=== PATIENT | female | born 1965 | race American Indian/Alaskan Native ===

== ENCOUNTER 2016-02-28 10:27 | Emergency (ER) | payer SELFPAY ==
--- NOTE | 2016-02-28 11:27 | Emergency Department Report ---
Chief Complaint: Abdominal Pain Stated Complaint: ABD PAIN/LOWER BACK PAIN/ Time Seen by Provider: 02/28/16 11:25 - HPI History of Present Illness: Patient here reports that she's having abdominal pain for 3 days. She says she noticed blood in her stool last night after she had a bowel movement and wiped. She says she has a history of hemorrhoid and she had hemorrhoidectomy in the past. She said her abdominal pain is 10 out of 10 located around her periumbilical area. Patient has a history of COPD reports coughing with some shortness of breath. She said the shortness of breath his usual she is on inhalers at home. She has a history of hysterectomy. She has a blood pressure of 198/123 and did not take her medications today. Denies any headache or chest pain. SHe usually takes Norvasc, clonidine, minoxidil and atenolol. She denies any nausea vomiting. She denies any fever or chills. - ROS Review of Systems: All systems are negative unless stated in HPI above. - Exam Vital Signs: Vital Signs 02/28/16 11:02 Temperature 98.1 F Pulse Rate 94 H Respiratory 24 Rate Blood Pressure 198/123 O2 Sat by Pulse 97 Oximetry Physical Exam: General: This is a 50-year-old female well-nourished well-developed nontoxic in appearance. Lungs: Lungs sounds coarse. Mild increased work of breathing. GI: Tender to palpate periumbilical area with positive guarding. No CVA tenderness and normal bowel sounds in all quadrants. MSE screening note: Focused history and physical exam performed. Due to findings the following was ordered:see [facility] ED Medical Decision Making - Medical Decision Making Medical decision making: Patient seen by provider in triage area. Appropriate protocol activated and patient to main ED to be seen by physician. ED Disposition for MSE Condition: Stable Instructions: Abdominal Pain (ED)
[2016-02-28] MEDS ORDERED: DUONEB 0.5 MG-3 MG/3 ML SOLN IH ONE (11:30)
[2016-02-28] MEDS ORDERED: CATAPRES PO ONE (11:33)
[2016-02-28] MEDS ORDERED: CATAPRES ONE (11:34)
[2016-02-28 11:48] LABS: Basophils % (Auto) 0.2 % (0.0-1.8); Eosinophils % (Auto) 1.5 % (0.0-4.3); Hematocrit 41.1 % (30.3-42.9); Hemoglobin 13.1 gm/dl (10.1-14.3); Mean Corpuscular HGB Conc 32 % (30-34); Mean Corpuscular Volume 81 fl (79-97); Platelet Count 177 K/mm3 (140-440); Red Cell Distribution Width 14.6 % (13.2-15.2); White Blood Count 7.8 K/mm3 (4.5-11.0)
[2016-02-28 11:52] LABS: Mean Corpuscular Hemoglobin 26 pg (28-32)
--- NOTE | 2016-02-28 12:00 | XRay Report ---
CHEST 2 VIEWS INDICATION: Cough with COPD. COMPARISON: 09/27/2015 FINDINGS: Frontal and lateral chest radiographs demonstrate stable cardiomediastinal silhouette, mildly elevated right hemidiaphragm and multilevel thoracic spondylosis. Grossly clear lungs without pleural effusions or CHF. CONCLUSION: No acute disease in the chest or significant interval change, as described. Thank you for the opportunity to participate in this patient's care.
[2016-02-28 12:02] LABS: Alanine Aminotransferase 22 units/L (7-56); Albumin 4.3 g/dL (3.9-5); Albumin/Globulin Ratio 1.3 %; Alkaline Phosphatase 79 units/L (35-129); Amylase 91 units/L (27-131); Anion Gap 17 mmol/L; BUN/Creatinine Ratio 28.57; Bilirubin,Total 0.3 mg/dL (0.1-1.2); Blood Urea Nitrogen 20 mg/dL (7-17); Calcium 9.2 mg/dL (8.4-10.2); Carbon Dioxide 28 mmol/L (22-30); Chloride 100.2 mmol/L (98-107); Glucose 132 mg/dL (65-100); Lipase 32 units/L (13-60); Potassium 4.1 mmol/L (3.6-5.0); Sodium 141 mmol/L (137-145); Total Protein 7.7 g/dL (6.3-8.2)
--- NOTE | 2016-02-28 12:52 | Emergency Department Report ---
HPI - General Chief Complaint: Abdominal Pain Time Seen by Provider: 02/28/16 11:25 - HPI HPI: This is a 50-year-old [place] female presents to the emergency department after she was dropped off by her daughter from home with complaint of a three- day history of mid upper abdominal discomfort. She denies any nausea, vomiting , fever, dysuria, constipation or diarrhea. However the patient said she did have one bowel movement yesterday where there was some bright red blood seen on the toilet paper. Patient has a history of internal hemorrhoids in the past. She is not taken anything for symptoms prior to presentation. Pain is currently 6 out of 10 in intensity but reaches a 10 out of 10 at its maximum. No recent travel or sick contacts at home. Her primary care doctor is Dr. Aragno. 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 She has a history of gallstones, HIV, gastric ulcers, COPD on 2 L oxygen, hypertension. ED Past Medical Hx - Past Medical History Hx Hypertension: Yes Hx Congestive Heart Failure: No Hx Diabetes: No Hx GERD: Yes Hx Arthritis: Yes Hx Seizures: No Hx Psychiatric Treatment: Yes (depression/anxiety) Hx Asthma: Yes Hx COPD: Yes Hx HIV: Yes Additional medical history: ulcers, pancreatitis. diverticulitis. ulcers. sleep apnea. glaucoma. fibromyalgia. chronic pain. Patient states her viral load is 0. She denies a history of pulmonary infections of any sort. hiv. depression/anxiety - Surgical History Hx Coronary Stent: No (pt reports she doesn't have any coronary stents.) Additional Surgical History: hysterectomy. tonsillectomy - Social History Smoking Status: Never Smoker Substance Use Type: None - Medications Home Medications: Home Medications Medication Instructions Recorded Confirmed Last Taken Type amLODIPine [Norvasc] 10 mg PO DAILY 12/21/12 10/27/15 09/26/15 09:00 History cloNIDine [Catapres] 0.2 mg PO BID 12/21/12 10/27/15 09/26/15 09:00 History Ondansetron [Zofran ODT TAB] 4 mg PO Q6H PRN #10 tab.rapdis 12/04/13 02/28/15 Rx Minoxidil [Loniten] 10 mg PO BID 10/16/14 10/27/15 09/26/15 09:00 History Albuterol Sulfate [Albuterol 0.63% 0.63 mg IH Q4HR PRN #2 ml 01/07/15 02/28/15 Unknown Rx NEBS] Albuterol Sulfate [Proair 90 mcg IH Q4HR PRN #2 aer.pow.ba 01/07/15 02/28/15 Unknown Rx Respiclick] Azithromycin [Zithromax Z-MELITON] 250 mg PO DAILY #4 tab 01/07/15 02/28/15 Unknown Rx Ondansetron [Zofran Odt] 4 mg PO QID PRN #20 tab.rapdis 01/07/15 02/28/15 Unknown Rx predniSONE [Deltasone] 40 mg PO QDAY #8 tab 01/07/15 02/28/15 Unknown Rx traMADol [Ultram 50 MG tab] 50 - 100 mg PO Q8HR PRN #20 tablet 01/09/15 Unknown Rx Atenolol [Tenormin] 100 mg PO DAILY 04/04/15 10/27/15 09/26/15 09:00 History Xanax TAB 0.5 mg PO BID 04/05/15 10/27/15 09/26/15 09:00 History Benzonatate [Tessalon Perles] 100 mg PO Q8HR #14 capsule 09/27/15 10/27/15 Unknown Rx Efavirenz/Emtricitab/Tenofovir 0 mg PO DAILY 09/27/15 10/27/15 09/26/15 09:00 History [Atripla Tablet] Sulfamethoxazole/Trimethoprim 1 each PO BID #20 tablet 09/27/15 10/27/15 Unknown Rx [Bactrim DS TAB] Zolpidem [Ambien] 5 mg PO QHS PRN 09/27/15 10/27/15 09/26/15 09:00 History Sulfamethoxazole/Trimethoprim 1 each PO BID #20 tablet 10/27/15 Unknown Rx [Bactrim DS TAB] Omeprazole Magnesium [PriLOSEC Otc] 20 mg PO QDAY #15 tablet. 02/28/16 Unknown Rx traMADol [Ultram 50 MG tab] 50 mg PO Q6HR PRN #10 tablet 02/28/16 Unknown Rx ED Review of Systems ROS: Stated complaint: ABD PAIN/LOWER BACK PAIN/ Other details as noted in HPI Comment: All other systems reviewed and negative Constitutional: denies: chills, fever Eyes: denies: eye pain, eye discharge, vision change ENT: denies: ear pain, throat pain Respiratory: denies: cough, shortness of breath, wheezing Cardiovascular: denies: chest pain, palpitations Gastrointestinal: abdominal pain. denies: nausea, vomiting Genitourinary: denies: urgency, dysuria, discharge Musculoskeletal: denies: back pain, joint swelling, arthralgia Skin: denies: rash, lesions Neurological: denies: headache, weakness, paresthesias Physical Exam - Physical Exam Vital Signs: Vital Signs 02/28/16 02/28/16 11:02 11:35 Temperature 98.1 F Pulse Rate 94 H 97 H Respiratory 24 Rate Blood Pressure 198/123 198/123 O2 Sat by Pulse 97 Oximetry Physical Exam: GENERAL: The patient is well-developed well-nourished. Patient does not appear in any acute distress. HEENT: Normocephalic. Atraumatic. Extraocular motions are intact. Patient has moist mucous membranes. Pupils equal reactive to light bilaterally. NECK: Supple. Trachea is midline. CHEST/LUNGS: Clear to auscultation. There is no respiratory distress noted. HEART/CARDIOVASCULAR: Regular. There is no tachycardia. There is no gallop rub or murmur. ABDOMEN: Abdomen is soft. Patient has some reproducible tenderness palpation to the upper quadrants of the abdomen. No guarding rebound tenderness. No peritoneal signs. Orbitally obese habitus. Patient has normal bowel sounds. There is no abdominal distention. SKIN: There is no rash. There is no edema. There is no diaphoresis. NEURO: The patient is awake, alert, and oriented. The patient is cooperative. The patient has no focal neurologic deficits. The patient has normal speech. MUSCULOSKELETAL: There is no tenderness or deformity. There is no limitation range of motion. There is no evidence of acute injury. ED Course Vital Signs 02/28/16 02/28/16 11:02 11:35 Temperature 98.1 F Pulse Rate 94 H 97 H Respiratory 24 Rate Blood Pressure 198/123 198/123 O2 Sat by Pulse 97 Oximetry ED Medical Decision Making - Lab Data Result diagrams: 02/28/16 11:37 02/28/16 11:37 - Radiology Data Radiology results: report reviewed, image reviewed interpreted by me: Chest x-ray did not show any acute process. Heart is normal shape and size. No effusions. No pneumothorax. No signs of pneumonia seen. Abdominal x-ray does not show any acute process. No acute abdominal sonographic abnormality on this technically limited exam with a small gallstone noted. - Medical Decision Making 50-year-old female presents to the emergency department with complaint of a few days of some upper abdominal discomfort. Patient's labs have been mostly unremarkable. There is no leukocytosis. Normal belly labs including LFTs, lipase and bilirubin. Urinalysis does not show any signs of urinary tract infection. Patient had abdominal x-ray that does not show any acute process. Patient had a CT scan of the abdomen and pelvis 3 months ago that showed some gallstones. With normal-appearing labs and a soft, nontoxic or rigid abdomen, I did not feel that a repeat CT scan of the abdomen was necessary at this time. Instead a complete abdominal ultrasound was done that showed a small gallstone but otherwise no acute pathology. Patient was given some pain medication which did help with her discomfort and also help with her hypertension. Patient will be discharged home to follow-up with Dr. Aragon and will return to the ER if any worsening of her symptoms or any acute distress. - Differential Diagnosis biliary colic, pancreatitis, hepatitis, colitis, gastritis Critical Care Time: No Critical care attestation.: If time is entered above; I have spent that time in minutes in the direct care of this critically ill patient, excluding procedure time. ED Disposition Clinical Impression: Abdominal pain Qualifiers: Abdominal location: upper abdomen, unspecified Qualified Code(s): R10.10 - Upper abdominal pain, unspecified Disposition: DISCHARGED TO HOME OR SELFCARE Is pt being admited?: No Does the pt Need Aspirin: No Condition: Stable Instructions: Abdominal Pain (ED) Additional Instructions: Please follow-up with your primary care doctor in the next few days. I given you a referral for a local data software engineer encase she need follow-up regarding the blood in her stool. Return to the emergency department with any worsening of your symptoms or any acute distress. You've been prescribed a medication that is sedating. Therefore this medication cannot be mixed with alcohol, or taken prior to driving, working, or being responsible for children. Try to stay away from foods that are high in salt and caffeinated products to help with your elevated blood pressure. Keep a blood pressure log. Prescriptions: Omeprazole Magnesium [PriLOSEC Otc] 20 mg PO QDAY #15 tablet. traMADol [Ultram 50 MG tab] 50 mg PO Q6HR PRN #10 tablet PRN Reason: Pain Referrals: CARLITO ARAGON DO [Staff Physician] - 3-5 Days IZZY YUN MD [Staff Physician] - 3-5 Days Time of Disposition: 16:35
[2016-02-28 13:04] LABS: Bilirubin,Urine Negative (Negative); Blood,Urine Negative (Negative); Ketones,Urine Negative (Negative); Leukocyte Esterase,Urine Negative (Negative); Mucus,Urine 2+ /HPF; Nitrite,Urine Negative (Negative); WBC,Urine < 1.0 /HPF (0.0-6.0)
--- NOTE | 2016-02-28 13:51 | XRay Report ---
ABDOMEN RADIOGRAPHS INDICATION: Abdominal pain. COMPARISON: 12/30/2013 FINDINGS: Frontal abdominal radiographs again demonstrate nonobstructive bowel gas pattern. Ascending colon stool. Small pelvic phleboliths and couple of surgical clips. No focal suspicious calcifications, pneumatosis or pneumoperitoneum. Right hemidiaphragm again elevated with possible prominent markings at the lung bases. Unremarkable bones. CONCLUSION: No acute abdominal radiographic abnormality, as described. Thank you for the opportunity to participate in this patient's care.
[2016-02-28] MEDS ORDERED: MORPHINE IV ONE (14:00)
--- NOTE | 2016-02-28 15:24 | Ultrasound Report ---
ULTRASOUND ABDOMEN: INDICATION: Abdominal pain. COMPARISON: 01/07/2015 ultrasound and 10/27/2015 CT. FINDINGS: Abdominal sonography limited due to patient's body habitus, though suggests grossly normal hepatic contours with possible mild diffuse echogenic coarsening versus technical with poor penetration. Tiny, 4 mm gallstone may be noted. No pericholecystic fluid or positive sonographic [place]'s sign. Gallbladder wall thickness is 2.4 mm. Common bile duct is 4.4 mm. Homogenous spleen, 9.7 cm in length. No ascites. Visualized pancreas unremarkable, though detail slightly obscured due to bowel gas. Nonaneurysmal abdominal aorta. Unremarkable IVC. Normal kidneys, approximately 11 x 4.6 x 4.9 cm on the right with cortical thickness of 1.3 cm while 10.2 x 4.1 x 5.1 cm on the left with cortical thickness of 1.6 cm. CONCLUSION: No acute abdominal sonographic abnormality on this technically limited exam with a small gallstone noted, as described. Thank you for the opportunity to participate in this patient's care.
[2016-02-28] MEDS ORDERED: DILAUDID IV ONE (15:48)
[2016-02-28 16:19] VITALS: BP 169/85
== END 2016-02-28 16:58 | disposition home or self-care (01) ==
LOC: ED 10:27
DX: R10.10 Upper abdominal pain, unspecified (principal); I10 Essential (primary) hypertension; K21.9 Gastro-esophageal reflux disease without esophagitis; M19.90 Unspecified osteoarthritis, unspecified site; F32.9 Major depressive disorder, single episode, unspecified; F41.9 Anxiety disorder, unspecified; J45.909 Unspecified asthma, uncomplicated; J44.9 Chronic obstructive pulmonary disease, unspecified; G89.29 Other chronic pain
CPT/HCPCS: 36415; 71020; 74020; 76700; 80053; 81001; 82150; 83690; 85025; 96374; 96375; 99285; J1170; J2270

== ENCOUNTER 2016-03-31 15:44 | Emergency (ER) | payer OTHER ==
[2016-03-31 16:38] VITALS: BP 184/90
[2016-03-31] MEDS ORDERED: PROVENTIL IH ONE (17:10)
[2016-03-31 18:56] LABS: Basophils % (Auto) 0.2 % (0.0-1.8); Eosinophils % (Auto) 0.3 % (0.0-4.3); Hematocrit 36.5 % (30.3-42.9); Hemoglobin 11.5 gm/dl (10.1-14.3); Mean Corpuscular HGB Conc 32 % (30-34); Mean Corpuscular Volume 78 fl (79-97); Platelet Count 120 K/mm3 (140-440); Red Blood Count 4.67 M/mm3 (3.65-5.03); Red Cell Distribution Width 15.4 % (13.2-15.2); White Blood Count 3.8 K/mm3 (4.5-11.0)
[2016-03-31 19:13] LABS: Alanine Aminotransferase 19 units/L (7-56); Albumin 3.8 g/dL (3.9-5); Albumin/Globulin Ratio 1.3 %; Alkaline Phosphatase 84 units/L (35-129); Anion Gap 15 mmol/L; BUN/Creatinine Ratio 23.33; Bilirubin,Total 0.3 mg/dL (0.1-1.2); Blood Urea Nitrogen 14 mg/dL (7-17); Calcium 8.3 mg/dL (8.4-10.2); Carbon Dioxide 26 mmol/L (22-30); Chloride 103.3 mmol/L (98-107); Glucose 107 mg/dL (65-100); Lipase 18 units/L (13-60); Potassium 3.4 mmol/L (3.6-5.0); Sodium 141 mmol/L (137-145); Total Protein 6.8 g/dL (6.3-8.2)
[2016-03-31 19:15] LABS: Mean Corpuscular Hemoglobin 25 pg (28-32)
--- NOTE | 2016-04-01 08:16 | XRay Report ---
CHEST TWO VIEWS: 03/31/16 15:44:00 CLINICAL: Shortness of breath. COMPARISON: 02/28/16 FINDINGS: Normal heart and pulmonary vasculature. The lungs are normally expanded and clear. Degenerative change in the spine. IMPRESSION: No acute cardiopulmonary process.
--- NOTE | 2016-04-04 20:26 | ED Elopement Review ---
ED Pt Elopement review - Results review Lab results: Laboratory Tests 03/31/16 03/31/16 18:24 18:24 WBC 3.8 L RBC 4.67 Hgb 11.5 Hct 36.5 MCV 78 L MCH 25 L MCHC 32 RDW 15.4 H Plt Count 120 L Lymph % (Auto) 35.6 H Rawlins % (Auto) 8.1 H Eos % (Auto) 0.3 Baso % (Auto) 0.2 Lymph # 1.3 Rawlins # 0.3 Eos # 0.0 Baso # 0.0 Seg Neutrophils % 55.8 Seg Neutrophils # 2.1 Sodium 141 Potassium 3.4 L Chloride 103.3 Carbon Dioxide 26 Anion Gap 15 BUN 14 Creatinine 0.6 L Estimated GFR > 60 BUN/Creatinine Ratio 23.33 Glucose 107 H Calcium 8.3 L Total Bilirubin 0.3 AST 22 ALT 19 Alkaline Phosphatase 84 Troponin T < 0.010 Total Protein 6.8 Albumin 3.8 L Albumin/Globulin Ratio 1.3 Lipase 18 - Call Back decision Pt Call Back Decision: No action required <EDWIN GONZALEZ - Last Filed: 04/04/16 20:26> - Results review Lab results: Laboratory Tests 03/31/16 03/31/16 18:24 18:24 WBC 3.8 L RBC 4.67 Hgb 11.5 Hct 36.5 MCV 78 L MCH 25 L MCHC 32 RDW 15.4 H Plt Count 120 L Lymph % (Auto) 35.6 H [place] % (Auto) 8.1 H Eos % (Auto) 0.3 Baso % (Auto) 0.2 Lymph # 1.3 [place]ins # 0.3 Eos # 0.0 Baso # 0.0 Seg Neutrophils % 55.8 Seg Neutrophils # 2.1 Sodium 141 Potassium 3.4 L Chloride 103.3 Carbon Dioxide 26 Anion Gap 15 BUN 14 Creatinine 0.6 L Estimated GFR > 60 BUN/Creatinine Ratio 23.33 Glucose 107 H Calcium 8.3 L Total Bilirubin 0.3 AST 22 ALT 19 Alkaline Phosphatase 84 Troponin T < 0.010 Total Protein 6.8 Albumin 3.8 L Albumin/Globulin Ratio 1.3 Lipase 18 - Call Back decision Pt Call Back Decision: Call pt to return to ED HEATHER (tachypnea should be evaluated) <YOBANY LOU - Last Filed: 04/06/16 01:18>
== END 2016-03-31 21:30 | disposition left against medical advice (07) ==
LOC: ED 15:44
DX: R07.9 Chest pain, unspecified (principal); R10.9 Unspecified abdominal pain; Z53.21 Procedure and treatment not carried out due to patient leaving prior to being seen by health care provider
CPT/HCPCS: 36415; 71020; 80053; 83690; 84484; 85025; 93005; 93010

== ENCOUNTER 2016-04-04 07:50 | Emergency (ER) | payer SELFPAY ==
[2016-04-04 09:07] LABS: Alanine Aminotransferase 21 units/L (7-56); Albumin 3.7 g/dL (3.9-5); Albumin/Globulin Ratio 1.1 %; Alkaline Phosphatase 74 units/L (35-129); Anion Gap 16 mmol/L; Bilirubin,Total 0.4 mg/dL (0.1-1.2); Blood Urea Nitrogen 7 mg/dL (7-17); Calcium 8.1 mg/dL (8.4-10.2); Carbon Dioxide 23 mmol/L (22-30); Chloride 104.5 mmol/L (98-107); Glucose 140 mg/dL (65-100); Lipase 21 units/L (13-60); Potassium 3.8 mmol/L (3.6-5.0); Sodium 140 mmol/L (137-145); Total Protein 7.1 g/dL (6.3-8.2)
[2016-04-04 09:48] LABS: Hematocrit 37.1 % (30.3-42.9); Hemoglobin 11.5 gm/dl (10.1-14.3); Mean Corpuscular HGB Conc 31 % (30-34); Mean Corpuscular Volume 78 fl (79-97); Platelet Count 110 K/mm3 (140-440); Red Blood Count 4.79 M/mm3 (3.65-5.03); Red Cell Distribution Width 14.7 % (13.2-15.2)
[2016-04-04 09:52] LABS: Mean Corpuscular Hemoglobin 24 pg (28-32)
[2016-04-04] MEDS ORDERED: ZOFRAN IV ONE (13:59)
[2016-04-04] MEDS ORDERED: MORPHINE IV ONE ×2 (13:59→17:41)
--- NOTE | 2016-04-04 14:06 | Emergency Department Report ---
HPI - General Chief Complaint: Abdominal Pain Time Seen by Provider: 04/04/16 13:48 - HPI HPI: Room 24 The patient is a 50-year-old female presenting with a chief complaint of abdominal pain. The patient states for the past 4-5 days she has had lower abdominal pain radiating to the left abdomen in addition to epigastric pain which she describes as sharp and initially intermittent but now constant. Patient admits to nausea vomiting in addition to loose stools for the past 2-3 days. Patient states yesterday she had a fever 102F. Patient also noticed a cough has been productive of yellow sputum. The patient gives her pain a score of 9/10 Location: [see above] Duration: [see above] Quality: Sharp Severity: 9/10 Modifying factors: [see above] Context: [see above] Mode of transportation: [not driving] ED Past Medical Hx - Past Medical History Hx Hypertension: Yes Hx GERD: Yes Hx Arthritis: Yes Hx Psychiatric Treatment: Yes (depression/anxiety) Hx Asthma: Yes Hx COPD: Yes Hx HIV: Yes (unknown CD4. Viral load undetectable) Additional medical history: ulcers, pancreatitis. diverticulitis. ulcers GALL STONES. sleep apnea. glaucoma. fibromyalgia. chronic pain. gallstones - Surgical History Additional Surgical History: hysterectomy. tonsillectomy - Family History Family history: no significant - Social History Smoking Status: Never Smoker Substance Use Type: None - Medications Home Medications: Home Medications Medication Instructions Recorded Confirmed Last Taken Type amLODIPine [Norvasc] 10 mg PO DAILY 12/21/12 10/27/15 09/26/15 09:00 History cloNIDine [Catapres] 0.2 mg PO BID 12/21/12 10/27/15 09/26/15 09:00 History Minoxidil [Loniten] 10 mg PO BID 10/16/14 10/27/15 09/26/15 09:00 History Atenolol [Tenormin] 100 mg PO DAILY 04/04/15 10/27/15 09/26/15 09:00 History Xanax TAB 0.5 mg PO BID 04/05/15 10/27/15 09/26/15 09:00 History Benzonatate [Tessalon Perles] 100 mg PO Q8HR #14 capsule 09/27/15 10/27/15 Unknown Rx Efavirenz/Emtricitab/Tenofovir 0 mg PO DAILY 09/27/15 10/27/15 09/26/15 09:00 History [Atripla Tablet] Sulfamethoxazole/Trimethoprim 1 each PO BID #20 tablet 09/27/15 10/27/15 Unknown Rx [Bactrim DS TAB] Zolpidem [Ambien] 5 mg PO QHS PRN 09/27/15 10/27/15 09/26/15 09:00 History Sulfamethoxazole/Trimethoprim 1 each PO BID #20 tablet 10/27/15 Unknown Rx [Bactrim DS TAB] Omeprazole Magnesium [PriLOSEC Otc] 20 mg PO QDAY #15 tablet. 02/28/16 Unknown Rx traMADol [Ultram 50 MG tab] 50 mg PO Q6HR PRN #10 tablet 02/28/16 Unknown Rx HYDROcodone/APAP 5-325 [[place] 1 - 2 each PO Q6HR PRN #10 tablet 04/04/16 Unknown Rx 5/325] Promethazine [Phenergan TAB] 25 mg PO Q6HR PRN #20 tab 04/04/16 Unknown Rx Promethazine [Phenergan] 25 mg [place] Q6HR PRN #7 supp.rect 04/04/16 Unknown Rx ED Review of Systems ROS: Stated complaint: SOB/N/V/ABD PAIN Other details as noted in HPI Comment: All other systems reviewed and negative Constitutional: fever. denies: chills Eyes: denies: eye pain, eye discharge, vision change ENT: denies: ear pain, throat pain Respiratory: cough. denies: shortness of breath, wheezing Cardiovascular: denies: chest pain, palpitations Endocrine: no symptoms reported Gastrointestinal: abdominal pain, nausea, vomiting, diarrhea Genitourinary: denies: urgency, dysuria, discharge Musculoskeletal: denies: back pain, joint swelling, arthralgia Skin: denies: rash, lesions Neurological: denies: headache, weakness, paresthesias Psychiatric: denies: anxiety, depression Hematological/Lymphatic: denies: easy bleeding, easy bruising Physical Exam - Physical Exam Vital Signs: Vital Signs 04/04/16 04/04/16 04/04/16 07:57 11:58 12:01 Temperature 99.1 F 98.5 F Pulse Rate 80 79 Respiratory 28 H 20 20 Rate Blood Pressure 146/89 147/90 O2 Sat by Pulse 94 98 97 Oximetry 02/11/17 02/11/17 02/11/17 12:20 12:45 12:51 Temperature Pulse Rate 80 74 Respiratory 29 H 25 H Rate Blood Pressure 132/60 O2 Sat by Pulse 94 94 98 Oximetry 04/04/16 04/04/16 04/04/16 13:00 13:11 13:21 Temperature Pulse Rate 70 77 78 Respiratory 29 H 29 H 29 H Rate Blood Pressure 142/82 142/82 149/85 O2 Sat by Pulse 98 97 97 Oximetry 04/04/16 13:30 Temperature Pulse Rate Respiratory Rate Blood Pressure 139/74 O2 Sat by Pulse 99 Oximetry Physical Exam: GENERAL: The patient is well-developed well-nourished female lying on stretcher not appearing to be in acute distress. [] HEENT: Normocephalic. Atraumatic. Extraocular motions are intact. Patient has moist mucous membranes. NECK: Supple. Trachea midline CHEST/LUNGS: Clear to auscultation. There is no respiratory distress noted. HEART/CARDIOVASCULAR: Regular. There is no tachycardia. There is no gallop rub or murmur. ABDOMEN: Abdomen is soft, with tenderness to palpation in the left lower quadrant, some pubic and epigastric regions. Patient has normal bowel sounds. There is no abdominal distention. SKIN: There is no rash. There is no edema. There is no diaphoresis. NEURO: The patient is awake, alert, and oriented. The patient is cooperative. The patient has normal speech MUSCULOSKELETAL: There is no evidence of acute injury. ED Course Vital Signs 04/04/16 04/04/16 04/04/16 07:57 11:58 12:01 Temperature 99.1 F 98.5 F Pulse Rate 80 79 Respiratory 28 H 20 20 Rate Blood Pressure 146/89 147/90 O2 Sat by Pulse 94 98 97 Oximetry 04/04/16 04/04/16 04/04/16 12:20 12:45 12:51 Temperature Pulse Rate 80 74 Respiratory 29 H 25 H Rate Blood Pressure 132/60 O2 Sat by Pulse 94 94 98 Oximetry 04/04/16 04/04/16 04/04/16 13:00 13:11 13:21 Temperature Pulse Rate 70 77 78 Respiratory 29 H 29 H 29 H Rate Blood Pressure 142/82 142/82 149/85 O2 Sat by Pulse 98 97 97 Oximetry 04/04/16 13:30 Temperature Pulse Rate Respiratory Rate Blood Pressure 139/74 O2 Sat by Pulse 99 Oximetry ED Medical Decision Making - Lab Data Result diagrams: 04/04/16 09:33 04/04/16 08:20 Laboratory Tests 04/04/16 04/04/16 04/04/16 08:03 08:20 09:33 WBC 3.0 L RBC 4.79 Hgb 11.5 Hct 37.1 MCV 78 L MCH 24 L MCHC 31 RDW 14.7 Plt Count 110 L Lymph % (Auto) Travel Accommodations Rater [place] % (Auto) Travel Accommodations Rater Eos % (Auto) Travel Accommodations Rater Baso % (Auto) Travel Accommodations Rater Lymph # Travel Accommodations Rater [place] # Travel Accommodations Rater Eos # Travel Accommodations Rater Baso # Travel Accommodations Rater Seg Neutrophils % Travel Accommodations Rater Seg Neutrophils # Travel Accommodations Rater Sodium 140 Potassium 3.8 Chloride 104.5 Carbon Dioxide 23 Anion Gap 16 BUN 7 Creatinine 0.7 Estimated GFR > 60 BUN/Creatinine Ratio 10.00 Glucose 140 H Calcium 8.1 L Total Bilirubin 0.4 AST 26 ALT 21 Alkaline Phosphatase 74 Total Protein 7.1 Albumin 3.7 L Albumin/Globulin Ratio 1.1 Lipase 21 Urine Color Yellow Urine Turbidity Clear Urine pH 6.0 Ur Specific [place] 1.015 Urine Protein 30 mg/dl Urine Glucose (UA) Neg Urine Ketones Neg Urine Blood Neg Urine Nitrite Neg Urine Bilirubin Neg Urine Urobilinogen 4.0 Ur Leukocyte Esterase Neg Urine WBC (Auto) 1.0 Urine RBC (Auto) 3.0 U Epithel Cells (Auto) 6.0 Urine Bacteria (Auto) 1+ Urine Mucus Few - Radiology Data Radiology results: report reviewed (CT abdomen and pelvis), image reviewed (CT abdomen pelvis) CT abdomen and pelvis (read by radiologist)-diverticulosis. No evidence of bowel obstruction or acute inflammation. Stable dilatation of the common bile duct. Possible cholelithiasis - Differential Diagnosis diverticulitis, gastroenteritis, chronic pain syndrome, pneumonia Critical care attestation.: If time is entered above; I have spent that time in minutes in the direct care of this critically ill patient, excluding procedure time. ED Disposition Clinical Impression: Abdominal pain Disposition: DISCHARGED TO HOME OR SELFCARE Is pt being admited?: No Does the pt Need Aspirin: No Condition: Stable Instructions: Abdominal Pain (ED) Additional Instructions: Return to the emergency department immediately should you develop worsening symptoms, fever, inability to tolerate food or liquid or any other concerns. Prescriptions: HYDROcodone/APAP 5-325 [[place] 5/325] 1 - 2 each PO Q6HR PRN #10 tablet PRN Reason: Pain Promethazine [Phenergan TAB] 25 mg PO Q6HR PRN #20 tab PRN Reason: Nausea Promethazine [Phenergan] 25 mg [place] Q6HR PRN #7 supp.rect PRN Reason: Vomiting Referrals: PRIMARY CARE, [Primary Care Provider] - 3-5 Days CLARISSA AMEZCUA MD [Staff Physician] - 3-5 Days (Dr. Amezcua is a general surgeon. Please follow up with her for further evaluation of your abdominal pain) Time of Disposition: 18:32
[2016-04-04] MEDS ORDERED: NACL ONE (14:10)
[2016-04-04] MEDS ORDERED: ATIVAN IV ONE (15:37)
[2016-04-04 17:24] LABS: Bacteria,Urine 1+ /HPF (Negative); Bilirubin,Urine NEG (Negative); Blood,Urine NEG (Negative); Ketones,Urine NEG (Negative); Leukocyte Esterase,Urine NEG (Negative); Mucus,Urine FEW /HPF; Nitrite,Urine NEG (Negative)
[2016-04-04] MEDS ORDERED: MORPHINE ONE (17:29)
--- NOTE | 2016-04-04 17:52 | Cat Scan Report ---
FINAL REPORT PROCEDURE: CT ABDOMEN PELVIS W CON TECHNIQUE: Computerized axial tomography of the abdomen and pelvis was performed after the IV injection of iodinated nonionic contrast. HISTORY: lower abdominal pain greatest on the left COMPARISON: 10/27/2015 FINDINGS: Visualized lower thorax: There is linear atelectasis or scarring in the left lung base. Liver: Normal size and attenuation. Spleen: Normal size and attenuation. Gallbladder and biliary system: Common bile duct measures up to 9 millimeters in caliber and is mildly dilated. No intrahepatic biliary ductal dilatation is seen. Possible cholelithiasis. Pancreas: Normal. Adrenals: Normal. Kidneys: Normal. GI tract: There is colonic diverticulosis. No evidence of bowel obstruction or acute inflammation. No evidence of appendiceal inflammation. Air-fluid levels are seen in the colon, which can be seen with diarrhea producing illness. Lymph nodes and mesentery: Prominent bilateral inguinal lymph nodes are present, measuring up to 12 millimeters in short axis. Vasculature: Normal. Bladder: Normal. Reproductive organs: Uterus is not visualized. Peritoneum: No free fluid. Musculoskeletal structures: No significant abnormality. Other: None. IMPRESSION: Diverticulosis. No evidence of bowel obstruction or acute inflammation. Stable dilatation of the common bile duct. Possible cholelithiasis
[2016-04-04 19:40] VITALS: BP 126/81
--- NOTE | 2016-04-05 09:33 | XRay Report ---
AP CHEST : 04/04/16 07:50:00 CLINICAL: Chest pain. COMPARISON:03/31/16 FINDINGS: Cardiomegaly and central vascular congestion. Bilateral reticular interstitial lung opacities. No pulmonary consolidation. The bones and soft tissues are unremarkable. IMPRESSION: CHF with mild interstitial pulmonary edema.
== END 2016-04-04 19:19 | disposition home or self-care (01) ==
LOC: ED 07:50
DX: R10.32 Left lower quadrant pain (principal); R10.13 Epigastric pain; I10 Essential (primary) hypertension; K21.9 Gastro-esophageal reflux disease without esophagitis; M19.90 Unspecified osteoarthritis, unspecified site; F32.9 Major depressive disorder, single episode, unspecified; F41.9 Anxiety disorder, unspecified; J44.9 Chronic obstructive pulmonary disease, unspecified; J45.909 Unspecified asthma, uncomplicated; Z90.710 Acquired absence of both cervix and uterus; Z90.89 Acquired absence of other organs; Z21 Asymptomatic human immunodeficiency virus [HIV] infection status
CPT/HCPCS: 36415; 71010; 74177; 80053; 81001; 83690; 85025; 96374; 96375; 96376; 99284; J2060; J2270; J2405; Q9967

== ENCOUNTER 2016-08-06 19:34 | Emergency (ER) | payer SELFPAY ==
[2016-08-06 20:57] LABS: Hematocrit 39.2 % (30.3-42.9); Hemoglobin 12.4 gm/dl (10.1-14.3); Mean Corpuscular HGB Conc 32 % (30-34); Mean Corpuscular Volume 76 fl (79-97); Red Blood Count 5.15 M/mm3 (3.65-5.03); Red Cell Distribution Width 17.5 % (13.2-15.2); White Blood Count 3.4 K/mm3 (4.5-11.0)
[2016-08-06 21:04] LABS: Alanine Aminotransferase 28 units/L (7-56); Albumin 3.9 g/dL (3.9-5); Albumin/Globulin Ratio 0.9 %; Alkaline Phosphatase 73 units/L (35-129); Anion Gap 20 mmol/L; BUN/Creatinine Ratio 38.57; Blood Urea Nitrogen 27 mg/dL (7-17); Calcium 9.1 mg/dL (8.4-10.2); Carbon Dioxide 21 mmol/L (22-30); Chloride 100.5 mmol/L (98-107); Glucose 130 mg/dL (65-100); Lipase 29 units/L (13-60); Potassium 3.5 mmol/L (3.6-5.0); Sodium 138 mmol/L (137-145); Total Protein 8.4 g/dL (6.3-8.2)
[2016-08-06 21:12] LABS: Mean Corpuscular Hemoglobin 24 pg (28-32)
[2016-08-06 21:13] LABS: INR 0.95 (0.87-1.13); Partial Thromboplastin Time 27.1 Sec. (24.2-36.6)
[2016-08-06 21:22] LABS: Erythrocyte Sedimentation Rate 17 mm/Hr (0-20)
[2016-08-06 22:29] LABS: Basophils % (Manual) 0 % (0.0-1.8); Blastocytes % (Manual) 0 %
[2016-08-06 22:30] LABS: Microcytosis 1+
[2016-08-06 22:31] LABS: Anisocytosis 1+; Diff Status Complete; Hypochromasia 1+; Ovalocytes 1+; Platelet Estimate Appears Decreased
[2016-08-06 22:32] LABS: Platelet Count 86 K/mm3 (140-440)
[2016-08-07 02:25] LABS: Bacteria,Urine 1+ /HPF (Negative); Bilirubin,Urine NEG (Negative); Blood,Urine NEG (Negative); Ketones,Urine NEG (Negative); Leukocyte Esterase,Urine MOD (Negative); Mucus,Urine 2+ /HPF; Nitrite,Urine NEG (Negative)
[2016-08-07] MEDS ORDERED: SUBLIMAZE IV ONE (03:11)
[2016-08-07] MEDS ORDERED: ZOFRAN IV ONE (03:11)
--- NOTE | 2016-08-07 03:20 | Emergency Department Report ---
HPI - General Chief Complaint: Chest Pain Time Seen by Provider: 08/07/16 02:23 - HPI HPI: Room 38 The patient is a 50-year-old female presenting with a chief complaint of right flank pain and chest pain. Patient states for the past 4-5 days she's had pain in her right flank that is sharp and worsens with movement. The patient states today while at rest she developed substernal chest pain described as sharp and pressure-like in nature. The patient is uncertain if she developed shortness of breath. Patient denies nausea vomiting or diaphoresis. The patient currently denies chest pain. The patient now only complains of pain in her right flank and gives it a score of 8/10. The patient had a cardiac catheterization 03/19/2014 here at [facility] performed by Dr. Lucrecia Walsh which revealed "no angiographic evidence of significant epicardial coronary artery disease in this right dominant system." Location: [see above] Duration: [see above] Quality: Pain Severity: 8/10 Modifying factors: [see above] Context: [see above] Mode of transportation: [not driving] ED Past Medical Hx - Past Medical History Previous Medical History?: Yes Hx Hypertension: Yes Hx GERD: Yes Hx Arthritis: Yes Hx Psychiatric Treatment: Yes (depression/anxiety) Hx Asthma: Yes Hx COPD: Yes Hx HIV: Yes (unknown CD4. Viral load undetectable) Additional medical history: Obesity. ulcers, pancreatitis. diverticulitis. ulcers GALL STONES. sleep apnea. glaucoma. fibromyalgia. chronic pain. gallstones - Surgical History Past Surgical History?: Yes Additional Surgical History: hysterectomy. tonsillectomy - Family History Family history: no significant - Social History Smoking Status: Current Some Day Smoker Substance Use Type: None (denies illicit drug use) - Medications Home Medications: Home Medications Medication Instructions Recorded Confirmed Last Taken Type amLODIPine [Norvasc] 10 mg PO DAILY 12/21/12 10/27/15 09/26/15 09:00 History cloNIDine [Catapres] 0.2 mg PO BID 12/21/12 10/27/15 09/26/15 09:00 History Minoxidil [Loniten] 10 mg PO BID 10/16/14 10/27/15 09/26/15 09:00 History Atenolol [Tenormin] 100 mg PO DAILY 04/04/15 10/27/15 09/26/15 09:00 History Xanax TAB 0.5 mg PO BID 04/05/15 10/27/15 09/26/15 09:00 History Benzonatate [Tessalon Perles] 100 mg PO Q8HR #14 capsule 09/27/15 10/27/15 Unknown Rx Efavirenz/Emtricitab/Tenofovir 0 mg PO DAILY 09/27/15 10/27/15 09/26/15 09:00 History [Atripla Tablet] Sulfamethoxazole/Trimethoprim 1 each PO BID #20 tablet 09/27/15 10/27/15 Unknown Rx [Bactrim DS TAB] Zolpidem [Ambien] 5 mg PO QHS PRN 09/27/15 10/27/15 09/26/15 09:00 History Sulfamethoxazole/Trimethoprim 1 each PO BID #20 tablet 10/27/15 Unknown Rx [Bactrim DS TAB] Omeprazole Magnesium [PriLOSEC Otc] 20 mg PO QDAY #15 tablet. 02/28/16 Unknown Rx traMADol [Ultram 50 MG tab] 50 mg PO Q6HR PRN #10 tablet 02/28/16 Unknown Rx HYDROcodone/APAP 5-325 [[place] 1 - 2 each PO Q6HR PRN #10 tablet 04/04/16 Unknown Rx 5/325] Promethazine [Phenergan TAB] 25 mg PO Q6HR PRN #20 tab 04/04/16 Unknown Rx Promethazine [Phenergan] 25 mg [place] Q6HR PRN #7 supp.rect 04/04/16 Unknown Rx Dicyclomine [Bentyl] 20 mg PO QID #10 tablet 08/07/16 Unknown Rx HYDROcodone/APAP 5-325 [[place] 1 - 2 each PO Q6HR PRN #14 tablet 08/07/16 Unknown Rx 5/325] ED Review of Systems ROS: Stated complaint: CP/NUMBNESS IN FINGERS/NAUSEA/BACK PAIN Other details as noted in HPI Comment: All other systems reviewed and negative Constitutional: denies: chills, fever Eyes: denies: eye pain, eye discharge, vision change ENT: denies: ear pain, throat pain Respiratory: denies: cough, shortness of breath, wheezing Cardiovascular: chest pain. denies: palpitations Endocrine: no symptoms reported Gastrointestinal: abdominal pain. denies: nausea, vomiting, diarrhea Genitourinary: denies: urgency, dysuria, discharge Musculoskeletal: back pain Skin: denies: rash, lesions Neurological: denies: headache, weakness, paresthesias Psychiatric: denies: anxiety, depression Hematological/Lymphatic: denies: easy bleeding, easy bruising Physical Exam - Physical Exam Vital Signs: Vital Signs 08/06/16 19:46 Temperature 98.6 F Pulse Rate 93 H Respiratory 18 Rate Blood Pressure 156/98 [Right] O2 Sat by Pulse 100 Oximetry Physical Exam: GENERAL: The patient is well-developed well-nourished female lying on stretcher appearing to be in mild discomfort. [] HEENT: Normocephalic. Atraumatic. Extraocular motions are intact. Patient has moist mucous membranes. NECK: Supple. No meningitic signs are noted. There is no adenopathy noted. CHEST/LUNGS: Clear to auscultation. There is no respiratory distress noted. HEART/CARDIOVASCULAR: Regular. There is no tachycardia. There is no gallop rub or murmur. ABDOMEN: Abdomen is soft, nontender. Patient has normal bowel sounds. There is no abdominal distention. SKIN: There is no rash. There is no edema. There is no diaphoresis. NEURO: The patient is awake, alert, and oriented. The patient is cooperative. The patient has normal speech MUSCULOSKELETAL: There is no evidence of acute injury. ED Course Vital Signs 08/06/16 19:46 Temperature 98.6 F Pulse Rate 93 H Respiratory 18 Rate Blood Pressure 156/98 [Right] O2 Sat by Pulse 100 Oximetry ED Medical Decision Making - Lab Data Result diagrams: 08/06/16 20:23 08/06/16 20:23 Laboratory Tests 08/06/16 08/06/16 08/06/16 20:23 20:23 20:23 WBC 3.4 L RBC 5.15 H Hgb 12.4 Hct 39.2 MCV 76 L MCH 24 L MCHC 32 RDW 17.5 H Plt Count 86 L Add Manual Diff Complete Total Counted 100 Seg Neuts % (Manual) 49.0 Band Neutrophils % 5.0 Lymphocytes % (Manual) 27.0 Reactive Lymphs % (Man) 1.0 Monocytes % (Manual) 17.0 H Eosinophils % (Manual) 1.0 Basophils % (Manual) 0 Metamyelocytes % 0 Myelocytes % 0 Promyelocytes % 0 Blast Cells % 0 Nucleated RBC % Not Reportable Seg Neutrophils # Man 1.7 L Band Neutrophils # 0.2 Lymphocytes # (Manual) 0.9 L Abs React Lymphs (Man) 0.0 Monocytes # (Manual) 0.6 Eosinophils # (Manual) 0.0 Basophils # (Manual) 0.0 Metamyelocytes # 0.0 Myelocytes # 0.0 Promyelocytes # 0.0 Blast Cells # 0.0 WBC Morphology Not Reportable Hypersegmented Neuts Not Reportable Hyposegmented Neuts Not Reportable Hypogranular Neuts Not Reportable Smudge Cells Not Reportable Toxic Granulation Not Reportable Toxic Vacuolation Not Reportable Dohle Bodies Not Reportable Pelger-Huet Anomaly Not Reportable Frank Rods Not Reportable Platelet Estimate Appears decreased Clumped Platelets Not Reportable Plt Clumps, EDTA Not Reportable Large Platelets Not Reportable Giant Platelets Not Reportable Platelet Satelliting Not Reportable Plt Morphology Comment Not Reportable RBC Morphology Not Reportable Dimorphic RBCs Not Reportable Polychromasia Not Reportable Hypochromasia 1+ Poikilocytosis Not Reportable Anisocytosis 1+ Microcytosis 1+ Macrocytosis Not Reportable Spherocytes Not Reportable Pappenheimer Bodies Not Reportable Sickle Cells Not Reportable Target Cells Not Reportable Tear Drop Cells Not Reportable Ovalocytes 1+ Helmet Cells Not Reportable Diallo-Haywood Bodies Not Reportable Quartzsite Rings Not Reportable Aide Cells Not Reportable Bite Cells Not Reportable Crenated Cell Not Reportable Elliptocytes Not Reportable Acanthocytes (Spur) Not Reportable Rouleaux Not Reportable Hemoglobin C Crystals Not Reportable Schistocytes Not Reportable Malaria parasites Not Reportable ESR 17 Miguelito Bodies Not Reportable Hem Pathologist Commnt No PT 12.6 INR 0.95 APTT 27.1 D-Dimer VBG pH Sodium 138 Potassium 3.5 L Chloride 100.5 Carbon Dioxide 21 L Anion Gap 20 BUN 27 H Creatinine 0.7 Estimated GFR > 60 BUN/Creatinine Ratio 38.57 Glucose 130 H Lactic Acid Calcium 9.1 Magnesium Total Bilirubin 0.30 AST 26 ALT 28 Alkaline Phosphatase 73 Troponin T < 0.010 NT-Pro-B Natriuret Pep Total Protein 8.4 H Albumin 3.9 Albumin/Globulin Ratio 0.9 Lipase 29 Urine Color Urine Turbidity Urine pH Ur Specific [place] Urine Protein Urine Glucose (UA) Urine Ketones Urine Blood Urine Nitrite Urine Bilirubin Urine Urobilinogen Ur Leukocyte Esterase Urine WBC (Auto) Urine RBC (Auto) U Epithel Cells (Auto) Urine Bacteria (Auto) Hyaline Casts Urine Mucus 08/06/16 08/06/16 08/06/16 20:23 20:23 20:23 WBC RBC Hgb Hct MCV MCH MCHC RDW Plt Count Add Manual Diff Total Counted Seg Neuts % (Manual) Band Neutrophils % Lymphocytes % (Manual) Reactive Lymphs % (Man) Monocytes % (Manual) Eosinophils % (Manual) Basophils % (Manual) Metamyelocytes % Myelocytes % Promyelocytes % Blast Cells % Nucleated RBC % Seg Neutrophils # Man Band Neutrophils # Lymphocytes # (Manual) Abs React Lymphs (Man) Monocytes # (Manual) Eosinophils # (Manual) Basophils # (Manual) Metamyelocytes # Myelocytes # Promyelocytes # Blast Cells # WBC Morphology Hypersegmented Neuts Hyposegmented Neuts Hypogranular Neuts Smudge Cells Toxic Granulation Toxic Vacuolation Dohle Bodies Pelger-Huet Anomaly Frank Rods Platelet Estimate Clumped Platelets Plt Clumps, EDTA Large Platelets Giant Platelets Platelet Satelliting Plt Morphology Comment RBC Morphology Dimorphic RBCs Polychromasia Hypochromasia Poikilocytosis Anisocytosis Microcytosis Macrocytosis Spherocytes Pappenheimer Bodies Sickle Cells Target Cells Tear Drop Cells Ovalocytes Helmet Cells Diallo-Haywood Bodies Quartzsite Rings [place] Cells Bite Cells Crenated Cell Elliptocytes Acanthocytes (Spur) Rouleaux Hemoglobin C Crystals Schistocytes Malaria parasites ESR Miguelito Bodies Hem Pathologist Commnt PT INR APTT D-Dimer VBG pH 7.342 Sodium Potassium Chloride Carbon Dioxide Anion Gap BUN Creatinine Estimated GFR BUN/Creatinine Ratio Glucose Lactic Acid 1.50 Calcium Magnesium Total Bilirubin AST ALT Alkaline Phosphatase Troponin T NT-Pro-B Natriuret Pep 198.0 Total Protein Albumin Albumin/Globulin Ratio Lipase Urine Color Urine Turbidity Urine pH Ur Specific [place] Urine Protein Urine Glucose (UA) Urine Ketones Urine Blood Urine Nitrite Urine Bilirubin Urine Urobilinogen Ur Leukocyte Esterase Urine WBC (Auto) Urine RBC (Auto) U Epithel Cells (Auto) Urine Bacteria (Auto) Hyaline Casts Urine Mucus 08/06/16 08/06/16 08/06/16 20:23 20:23 23:50 WBC RBC Hgb Hct MCV MCH MCHC RDW Plt Count Add Manual Diff Total Counted Seg Neuts % (Manual) Band Neutrophils % Lymphocytes % (Manual) Reactive Lymphs % (Man) Monocytes % (Manual) Eosinophils % (Manual) Basophils % (Manual) Metamyelocytes % Myelocytes % Promyelocytes % Blast Cells % Nucleated RBC % Seg Neutrophils # Man Band Neutrophils # Lymphocytes # (Manual) Abs React Lymphs (Man) Monocytes # (Manual) Eosinophils # (Manual) Basophils # (Manual) Metamyelocytes # Myelocytes # Promyelocytes # Blast Cells # WBC Morphology Hypersegmented Neuts Hyposegmented Neuts Hypogranular Neuts Smudge Cells Toxic Granulation Toxic Vacuolation Dohle Bodies Pelger-Huet Anomaly Frank Rods Platelet Estimate Clumped Platelets Plt Clumps, EDTA Large Platelets Giant Platelets Platelet Satelliting Plt Morphology Comment RBC Morphology Dimorphic RBCs Polychromasia Hypochromasia Poikilocytosis Anisocytosis Microcytosis Macrocytosis Spherocytes Pappenheimer Bodies Sickle Cells Target Cells Tear Drop Cells Ovalocytes Helmet Cells Diallo-Haywood Bodies Quartzsite Rings Aide Cells Bite Cells Crenated Cell Elliptocytes Acanthocytes (Spur) Rouleaux Hemoglobin C Crystals Schistocytes Malaria parasites ESR Miguelito Bodies Hem Pathologist Commnt PT INR APTT D-Dimer 211.32 VBG pH Sodium Potassium Chloride Carbon Dioxide Anion Gap BUN Creatinine Estimated GFR BUN/Creatinine Ratio Glucose Lactic Acid Calcium Magnesium 2.20 Total Bilirubin AST ALT Alkaline Phosphatase Troponin T < 0.010 NT-Pro-B Natriuret Pep Total Protein Albumin Albumin/Globulin Ratio Lipase Urine Color Urine Turbidity Urine pH Ur Specific [place] Urine Protein Urine Glucose (UA) Urine Ketones Urine Blood Urine Nitrite Urine Bilirubin Urine Urobilinogen Ur Leukocyte Esterase Urine WBC (Auto) Urine RBC (Auto) U Epithel Cells (Auto) Urine Bacteria (Auto) Hyaline Casts Urine Mucus 08/07/16 08/07/16 00:11 02:07 WBC RBC Hgb Hct MCV MCH MCHC RDW Plt Count Add Manual Diff Total Counted Seg Neuts % (Manual) Band Neutrophils % Lymphocytes % (Manual) Reactive Lymphs % (Man) Monocytes % (Manual) Eosinophils % (Manual) Basophils % (Manual) Metamyelocytes % Myelocytes % Promyelocytes % Blast Cells % Nucleated RBC % Seg Neutrophils # Man Band Neutrophils # Lymphocytes # (Manual) Abs React Lymphs (Man) Monocytes # (Manual) Eosinophils # (Manual) Basophils # (Manual) Metamyelocytes # Myelocytes # Promyelocytes # Blast Cells # WBC Morphology Hypersegmented Neuts Hyposegmented Neuts Hypogranular Neuts Smudge Cells Toxic Granulation Toxic Vacuolation Dohle Bodies Pelger-Huet Anomaly Frank Rods Platelet Estimate Clumped Platelets Plt Clumps, EDTA Large Platelets Giant Platelets Platelet Satelliting Plt Morphology Comment RBC Morphology Dimorphic RBCs Polychromasia Hypochromasia Poikilocytosis Anisocytosis Microcytosis Macrocytosis Spherocytes Pappenheimer Bodies Sickle Cells Target Cells Tear Drop Cells Ovalocytes Helmet Cells Diallo-Haywood Bodies Quartzsite Rings [place] Cells Bite Cells Crenated Cell Elliptocytes Acanthocytes (Spur) Rouleaux Hemoglobin C Crystals Schistocytes Malaria parasites ESR Miguelito Bodies Hem Pathologist Commnt PT INR APTT D-Dimer VBG pH Sodium Potassium Chloride Carbon Dioxide Anion Gap BUN Creatinine Estimated GFR BUN/Creatinine Ratio Glucose Lactic Acid Calcium Magnesium Total Bilirubin AST ALT Alkaline Phosphatase Troponin T < 0.010 NT-Pro-B Natriuret Pep Total Protein Albumin Albumin/Globulin Ratio Lipase Urine Color Yellow Urine Turbidity Clear Urine pH 6.0 Ur Specific [place] 1.029 Urine Protein 100 mg/dl Urine Glucose (UA) Neg Urine Ketones Neg Urine Blood Neg Urine Nitrite Neg Urine Bilirubin Neg Urine Urobilinogen 4.0 Ur Leukocyte Esterase Mod Urine WBC (Auto) 8.0 H Urine RBC (Auto) 6.0 U Epithel Cells (Auto) 7.0 Urine Bacteria (Auto) 1+ Hyaline Casts 2 Urine Mucus 2+ - EKG Data -: EKG Interpreted by Me EKG shows normal: sinus rhythm Rate: normal - EKG Data When compared to previous EKG there are: no significant change Interpretation: unchanged when compared t (03/31/2016), nonspecific ST-T wave heavenly - Radiology Data Radiology results: report reviewed (CT abdomen and pelvis), image reviewed ( chest x-ray, ( CT abdomen and pelvis images not available to me)) interpreted by me: Chest x-ray-no focal infiltrates, no pneumothorax CT abdomen and pelvis (read by radiologist)- there is no evidence of intestinal or urinary tract obstruction. No ileus or enteritis. Mild diverticulosis of the distal colon. Cholelithiasis. - Medical Decision Making Patient had cardiac catheterization performed 03/19/2014 that revealed no angiographic evidence of significant epicardial coronary artery disease. Subsequently I do not believe patient's chest pain is indicative of coronary artery disease. The patient has a negative d-dimer and subsequently I believe her chest pain is atypical and not requiring inpatient evaluation Critical care attestation.: If time is entered above; I have spent that time in minutes in the direct care of this critically ill patient, excluding procedure time. ED Disposition Clinical Impression: Cholelithiasis, Atypical chest pain, Right flank pain Disposition: TO HOME OR SELFCARE Is pt being admited?: No Does the pt Need Aspirin: No Condition: Stable Instructions: Chest Pain (ED), Biliary Colic (ED) Additional Instructions: Return to the emergency department immediately should you develop worsening symptoms, fever, inability to tolerate food or liquid or any other concerns. Prescriptions: Dicyclomine [Bentyl] 20 mg PO QID #10 tablet HYDROcodone/APAP 5-325 [[place] 5/325] 1 - 2 each PO Q6HR PRN #14 tablet PRN Reason: Pain Referrals: PRIMARY CARE, [Primary Care Provider] - 3-5 Days SATNAM CONTRERAS MD [Staff Physician] - 3-5 Days (Dr. Contreras is a surgeon. Please follow up with him for further evaluation of your gallstones) Time of Disposition: 04:56
[2016-08-07] MEDS ORDERED: ATIVAN IV PRN (04:08)
--- NOTE | 2016-08-07 04:46 | Cat Scan Report ---
FINAL REPORT PROCEDURE: CT ABDOMEN PELVIS WO CON TECHNIQUE: Computerized axial tomography of the abdomen and pelvis was performed without intravenous contrast. This study is performed without intravascular contrast material and its sensitivity for abdominal and pelvic pathology, including neoplasms, inflammation, abscess, free fluid, thrombosis, arterial dissection and infarction, is reduced compared with a contrast enhanced study. HISTORY: right flank pain COMPARISON: 04/04/2016 FINDINGS: Visualized lower thorax: No significant abnormality. Liver: Normal size and attenuation. Spleen: Normal size and attenuation. Gallbladder and biliary system: There are stones identified within the gallbladder lumen. No dilatation of the biliary ductal system. Pancreas: Normal. Adrenals: Normal. Kidneys: Normal. GI tract: Stomach is normal. The small bowel has a normal caliber. No obstruction, ileus or enteritis. The cecum, appendix and colon are normal. Mild diverticular change of the distal colon.. Lymph nodes and mesentery: Normal. Vasculature: Normal. Bladder: Normal. Reproductive organs: Normal. Peritoneum: No free fluid. Musculoskeletal structures: No significant abnormality. Other: None. IMPRESSION: There is no evidence of intestinal or urinary tract obstruction. No ileus or enteritis. Mild diverticulosis the distal colon. Cholelithiasis..
[2016-08-07 05:51] VITALS: BP 140/86
--- NOTE | 2016-08-07 08:27 | XRay Report ---
CHEST TWO VIEWS: 08/06/16 19:34:00 CLINICAL: Chest pain.Shortness of breath. COMPARISON: 04/04/16 FINDINGS: Borderline cardiomegaly. Normal pulmonary vessels. The pulmonary vessels are more distinct than on prior exam. The lungs are relatively clear.No tubes or lines. Spondylosis of thoracic spine. IMPRESSION: Borderline cardiomegaly but no CHF.
== END 2016-08-07 05:20 | disposition home or self-care (01) ==
LOC: ED 19:34
DX: K80.20 Calculus of gallbladder without cholecystitis without obstruction (principal); R07.89 Other chest pain; R10.9 Unspecified abdominal pain; K21.9 Gastro-esophageal reflux disease without esophagitis; M19.90 Unspecified osteoarthritis, unspecified site; I10 Essential (primary) hypertension; F32.9 Major depressive disorder, single episode, unspecified; J44.9 Chronic obstructive pulmonary disease, unspecified; F17.200 Nicotine dependence, unspecified, uncomplicated; J45.909 Unspecified asthma, uncomplicated; E66.9 Obesity, unspecified; K85.90 Acute pancreatitis without necrosis or infection, unspecified; K57.92 Diverticulitis of intestine, part unspecified, without perforation or abscess without bleeding; Z88.8 Allergy status to other drugs, medicaments and biological substances
CPT/HCPCS: 36415; 71020; 74176; 80053; 81001; 82140; 82805; 83690; 83735; 83880; 84484; 85007; 85025; 85379; 85610; 85652; 85730; 93005; 93010; 96374; 96375; 99285; J2060; J2405; J3010

== ENCOUNTER 2016-08-30 10:40 | Emergency (ER) | payer SELFPAY ==
[2016-08-30 11:37] LABS: Basophils % (Auto) 0.4 % (0.0-1.8); Eosinophils % (Auto) 1.8 % (0.0-4.3); Hematocrit 37.2 % (30.3-42.9); Hemoglobin 11.8 gm/dl (10.1-14.3); Mean Corpuscular HGB Conc 32 % (30-34); Mean Corpuscular Volume 78 fl (79-97); Platelet Count 174 K/mm3 (140-440); Red Blood Count 4.77 M/mm3 (3.65-5.03); Red Cell Distribution Width 17.4 % (13.2-15.2); White Blood Count 7.7 K/mm3 (4.5-11.0)
[2016-08-30 11:38] LABS: Mean Corpuscular Hemoglobin 25 pg (28-32)
[2016-08-30 11:41] LABS: Alanine Aminotransferase 18 units/L (7-56); Alkaline Phosphatase 65 units/L (35-129); BUN/Creatinine Ratio 24.28; Blood Urea Nitrogen 17 mg/dL (7-17); Calcium 9.1 mg/dL (8.4-10.2); Carbon Dioxide 25 mmol/L (22-30); Glucose 161 mg/dL (65-100); Lipase 24 units/L (13-60); Total Protein 8.2 g/dL (6.3-8.2)
[2016-08-30 11:42] LABS: Anion Gap 16 mmol/L; Chloride 103.1 mmol/L (98-107); Potassium 4.5 mmol/L (3.6-5.0); Sodium 140 mmol/L (137-145)
[2016-08-30 11:50] LABS: Bilirubin,Urine NEG (Negative); Blood,Urine NEG (Negative); Ketones,Urine NEG (Negative); Leukocyte Esterase,Urine TR (Negative); Mucus,Urine FEW /HPF; Nitrite,Urine NEG (Negative)
[2016-08-30] MEDS ORDERED: NACL 0.9% 1000 ML 1,000 ML IV ONE (16:11)
[2016-08-30] MEDS ORDERED: PEPCID IV ONE (16:11)
[2016-08-30] MEDS ORDERED: MORPHINE IV ONE (16:11)
[2016-08-30] MEDS ORDERED: ZOFRAN IV ONE (16:11)
[2016-08-30] MEDS ORDERED: ATIVAN IV ONE (16:56)
--- NOTE | 2016-08-30 17:59 | Cat Scan Report ---
FINAL REPORT EXAM: CT HEAD/BRAIN WO/W CON HISTORY: stevenson, n,v, AIDS TECHNIQUE: CT imaging acquired through the rain prior and subsequent to administration of intravenous contrast. Transaxial reformations are provided. PRIORS: 05/29/2015 FINDINGS: The ventricles, cisterns and sulci are within normal limits. No intraparenchymal or extra-axial mass, hemorrhage, or mass effect. Landrum and white-matter differentiation is within normal limits. No abnormal enhancement identified following intravenous administration of contrast. Subarachnoid and epidural spaces are within normal limits. No ring-enhancing lesions. Normal spherical shape of the globes. Retro bulbar fat is unremarkable. Paranasal sinuses and mastoid air cells are clear. No skull or facial fracture visualized. IMPRESSION: No acute intracranial abnormality. No abnormal enhancement is identified. If there is concern for intracranial infection, MRI is suggested for more sensitive evaluation.
--- NOTE | 2016-08-30 18:11 | Cat Scan Report ---
FINAL REPORT EXAM: CT ABDOMEN PELVIS W CON HISTORY: upper abd pain n,v TECHNIQUE: CT images are acquired through the Abdomen and Pelvis in venous and delayed phases following intravenous administration of contrast. Transaxial, coronal and sagittal reformations are provided. PRIORS: 08/07/2016 FINDINGS: Partially visualized intrathoracic contents are unremarkable. Single 4 millimeter gallstone. No pericholecystic inflammatory findings. The liver, pancreas, spleen, and adrenal glands are unremarkable. Kidneys show no worrisome lesions, hydronephrosis, or calculi. Urinary bladder is without intraluminal stone. Pelvic phleboliths are noted. Hysterectomy. No significant free fluid in the pelvis. Small and large bowel are normal in caliber. Appendix is normal. Sigmoid diverticulosis without surrounding inflammatory findings. No free air, free fluid, or lymphadenopathy identified. Aorta is normal in course and caliber. Superficial soft tissues are unremarkable. No acute or aggressive appearing skeletal findings. IMPRESSION: No acute intra-abdominal process. Cholelithiasis.
[2016-08-30] MEDS ORDERED: REGLAN IV ONE (18:17)
[2016-08-30] MEDS ORDERED: DILAUDID IV ONE (18:17)
[2016-08-30] MEDS ORDERED: BENADRYL IV ONE (18:17)
--- NOTE | 2016-08-30 18:26 | Emergency Department Report ---
ED Abdominal Pain HPI - General Chief Complaint: Abdominal Pain Stated Complaint: HEADACHE,N/V Time Seen by Provider: 08/30/16 16:01 Source: patient, old records reviewed Mode of arrival: Wheelchair Limitations: No Limitations - History of Present Illness Initial Comments: 50-year-old female with past medical history HIV/AIDS, asthma, GERD, hypertension, obesity, pancreatitis, peptic ulcer disease,fibromyalgia, chronic pain, and sleep apnea, among other problems presents to the hospital complains of nausea, vomiting, headache, and abdominal pain. Had a headache that has been constant 1 week. Includes a posterior part of her head and across the front of her head. Pain is rated at 9/10 in intensity without aggravating or alleviating factors. No focal weakness or blurred vision. Similar headaches in the past secondary to "migraines". Patient developed nausea and vomiting yesterday. She had 5 episodes of vomiting since symptom onset. Denies diarrhea. Patient has generalized abdominal pain that is intermittent and rated 9/10 in intensity. Patient denies melena, hematochezia, hematemesis, fever, recent travel. Up until 3 weeks ago patient was not compliant with all her medications since October 2015. Over the last 3 weeks she has restarted her HIV medications and the Bactrim since her CD4 count was less than 200. Severity scale (0 -10): 10 - Related Data Home Medications Medication Instructions Recorded Confirmed Last Taken amLODIPine [Norvasc] 10 mg PO DAILY 12/21/12 10/27/15 09/26/15 09:00 cloNIDine [Catapres] 0.2 mg PO BID 12/21/12 10/27/15 09/26/15 09:00 Minoxidil [Loniten] 10 mg PO BID 10/16/14 10/27/15 09/26/15 09:00 Atenolol [Tenormin] 100 mg PO DAILY 04/04/15 10/27/15 09/26/15 09:00 Xanax TAB 0.5 mg PO BID 04/05/15 10/27/15 09/26/15 09:00 Efavirenz/Emtricitab/Tenofovir 0 mg PO DAILY 09/27/15 10/27/15 09/26/15 09:00 [Atripla Tablet] Zolpidem [Ambien] 5 mg PO QHS PRN 09/27/15 10/27/15 09/26/15 09:00 Previous Rx's Medication Instructions Recorded Last Taken Type Benzonatate [Tessalon Perles] 100 mg PO Q8HR #14 capsule 09/27/15 Unknown Rx Sulfamethoxazole/Trimethoprim 1 each PO BID #20 tablet 09/27/15 Unknown Rx [Bactrim DS TAB] Sulfamethoxazole/Trimethoprim 1 each PO BID #20 tablet 10/27/15 Unknown Rx [Bactrim DS TAB] traMADol [Ultram 50 MG tab] 50 mg PO Q6HR PRN #10 tablet 02/28/16 Unknown Rx Promethazine [Phenergan] 25 mg TX Q6HR PRN #7 supp.rect 04/04/16 Unknown Rx Dicyclomine [Bentyl] 20 mg PO QID #10 tablet 08/07/16 Unknown Rx HYDROcodone/APAP 5-325 [[place] 1 - 2 each PO Q6HR PRN #14 tablet 08/07/16 Unknown Rx 5/325] HYDROcodone/APAP 5-325 [[place] 1 - 2 each PO Q6HR PRN #20 tablet 08/30/16 Unknown Rx 5-325 mg TAB] Omeprazole Magnesium [PriLOSEC Otc] 20 mg PO QDAY #30 tablet. 08/30/16 Unknown Rx Ondansetron [Zofran Odt] 4 mg PO Q8HR PRN #20 tab.rapdis 08/30/16 Unknown Rx Promethazine [Phenergan TAB] 25 mg PO Q6HR PRN #20 tab 08/30/16 Unknown Rx Allergies Allergy/AdvReac Type Severity Reaction Status Date / Time codeine Allergy Angioedema Verified 04/04/16 07:55 lisinopril Allergy Angioedema Verified 04/04/16 07:55 ED Review of Systems ROS: Stated complaint: HEADACHE,N/V Other details as noted in HPI Comment: All other systems reviewed and negative Other: Constitutional: No fevers chills Eyes: No eye pain visual changes or discharge ENT: No ear pain or throat pain Neck: Denies pain Respiratory: Denies cough wheezing shortness of breath Cardiovascular: Denies chest pain, palpitations, syncope GI: As per HPI : Denies dysuria, urinary frequency, or urgency Musculoskeletal: Denies back pain, joint swelling Skin: Denies rash, lesions, erythema Neurologic: As per HPI Psychiatric: Denies suicidal ideation, hallucinations Hematological/lymphatic: Denies easy bruising, lymphadenopathy ED Past Medical Hx - Past Medical History Hx Hypertension: Yes Hx Congestive Heart Failure: No Hx Diabetes: No Hx GERD: Yes Hx Arthritis: Yes Hx Seizures: No Hx Psychiatric Treatment: Yes (depression/anxiety) Hx Asthma: Yes Hx COPD: Yes Hx HIV: Yes (unknown CD4. Viral load undetectable) Additional medical history: Obesity. ulcers, pancreatitis. diverticulitis. ulcers GALL STONES. sleep apnea. glaucoma. fibromyalgia. chronic pain. gallstones - Surgical History Hx Coronary Stent: No (pt reports she doesn't have any coronary stents.) Additional Surgical History: hysterectomy. tonsillectomy - Social History Smoking Status: Never Smoker Substance Use Type: None - Medications Home Medications: Home Medications Medication Instructions Recorded Confirmed Last Taken Type amLODIPine [Norvasc] 10 mg PO DAILY 12/21/12 10/27/15 09/26/15 09:00 History cloNIDine [Catapres] 0.2 mg PO BID 12/21/12 10/27/15 09/26/15 09:00 History Minoxidil [Loniten] 10 mg PO BID 10/16/14 10/27/15 09/26/15 09:00 History Atenolol [Tenormin] 100 mg PO DAILY 04/04/15 10/27/15 09/26/15 09:00 History Xanax TAB 0.5 mg PO BID 04/05/15 10/27/15 09/26/15 09:00 History Benzonatate [Tessalon Perles] 100 mg PO Q8HR #14 capsule 09/27/15 10/27/15 Unknown Rx Efavirenz/Emtricitab/Tenofovir 0 mg PO DAILY 09/27/15 10/27/15 09/26/15 09:00 History [Atripla Tablet] Sulfamethoxazole/Trimethoprim 1 each PO BID #20 tablet 09/27/15 10/27/15 Unknown Rx [Bactrim DS TAB] Zolpidem [Ambien] 5 mg PO QHS PRN 09/27/15 10/27/15 09/26/15 09:00 History Sulfamethoxazole/Trimethoprim 1 each PO BID #20 tablet 10/27/15 Unknown Rx [Bactrim DS TAB] traMADol [Ultram 50 MG tab] 50 mg PO Q6HR PRN #10 tablet 02/28/16 Unknown Rx Promethazine [Phenergan] 25 mg TX Q6HR PRN #7 supp.rect 04/04/16 Unknown Rx Dicyclomine [Bentyl] 20 mg PO QID #10 tablet 08/07/16 Unknown Rx HYDROcodone/APAP 5-325 [[place] 1 - 2 each PO Q6HR PRN #14 tablet 08/07/16 Unknown Rx 5/325] HYDROcodone/APAP 5-325 [[place] 1 - 2 each PO Q6HR PRN #20 tablet 08/30/16 Unknown Rx 5-325 mg TAB] Omeprazole Magnesium [PriLOSEC Otc] 20 mg PO QDAY #30 tablet. 08/30/16 Unknown Rx Ondansetron [Zofran Odt] 4 mg PO Q8HR PRN #20 tab.rapdis 08/30/16 Unknown Rx Promethazine [Phenergan TAB] 25 mg PO Q6HR PRN #20 tab 08/30/16 Unknown Rx ED Physical Exam - General Limitations: No Limitations - Other Other exam information: General: No limitations, patient is alert in no acute distress Head exam: Atraumatic, normocephalic Eyes exam: Normal appearance, pupils equal reactive to light, extraocular movements intact ENT: Moist mucous membrane, normal oropharynx Neck exam: Normal inspection, full range of motion, no meningismus nontender Respiratory exam: Clear to auscultation bilateral, no wheezes, rales, crackles Cardiovascular: Normal rate and rhythm, normal heart sounds Abdomen: Soft, nondistended, epigastric left upper quadrant tenderness, no rebound or guarding. No [place] sign Extremity: Full range of motion normal inspection no deformity Back: Normal Inspection, full range of motion, no tenderness Neurologic: Alert, oriented x3, cranial nerves intact, no motor or sensory deficit Psychiatric: normal affect, normal mood Skin: Warm, dry, intact ED Course Vital Signs 08/30/16 08/30/16 08/30/16 11:03 16:04 16:07 Temperature 98.3 F 97.8 F Pulse Rate 89 81 Respiratory 16 16 Rate Blood Pressure 151/83 Blood Pressure 134/57 [Left] O2 Sat by Pulse 100 94 95 Oximetry - Reevaluation(s) Reevaluation #1: 08/30/16 18:58 Patient treated with Dilaudid, Zofran and required additional pain medication. Ativan was given for anxiety while performing CT. 1 L normal saline and IV Pepcid also provided. ED Medical Decision Making - Lab Data Result diagrams: 08/30/16 11:10 08/30/16 11:10 Lab Results 08/30/16 08/30/16 08/30/16 Range/Units 11:10 11:10 11:24 WBC 7.7 (4.5-11.0) K/mm3 RBC 4.77 (3.65-5.03) M/mm3 Hgb 11.8 (10.1-14.3) gm/dl Hct 37.2 (30.3-42.9) % MCV 78 L (79-97) fl MCH 25 L (28-32) pg MCHC 32 (30-34) % RDW 17.4 H (13.2-15.2) % Plt Count 174 (140-440) K/mm3 Lymph % (Auto) 44.4 H (13.4-35.0) % [place] % (Auto) 7.6 H (0.0-7.3) % Eos % (Auto) 1.8 (0.0-4.3) % Baso % (Auto) 0.4 (0.0-1.8) % Lymph # 3.4 (1.2-5.4) K/mm3 [place] # 0.6 (0.0-0.8) K/mm3 Eos # 0.1 (0.0-0.4) K/mm3 Baso # 0.0 (0.0-0.1) K/mm3 Seg Neutrophils % 45.8 (40.0-70.0) % Seg Neutrophils # 3.5 (1.8-7.7) K/mm3 Sodium 140 (137-145) mmol/L Potassium 4.5 (3.6-5.0) mmol/L Chloride 103.1 (98-107) mmol/L Carbon Dioxide 25 (22-30) mmol/L Anion Gap 16 mmol/L BUN 17 (7-17) mg/dL Creatinine 0.7 (0.7-1.2) mg/dL Estimated GFR > 60 ml/min BUN/Creatinine Ratio 24.28 % Glucose 161 H (65-100) mg/dL Calcium 9.1 (8.4-10.2) mg/dL Total Bilirubin 0.20 (0.1-1.2) mg/dL AST 17 (5-40) units/L ALT 18 (7-56) units/L Alkaline Phosphatase 65 (35-129) units/L Total Protein 8.2 (6.3-8.2) g/dL Albumin 4.0 (3.9-5) g/dL Albumin/Globulin Ratio 1.0 % Lipase 24 (13-60) units/L Urine Color Yellow (Yellow) Urine Turbidity Clear (Clear) Urine pH 6.0 (5.0-7.0) Ur Specific [place] 1.026 (1.003-1.030) Urine Protein 30 mg/dl (Negative) mg/dL Urine Glucose (UA) Neg (Negative) mg/dL Urine Ketones Neg (Negative) mg/dL Urine Blood Neg (Negative) Urine Nitrite Neg (Negative) Urine Bilirubin Neg (Negative) Urine Urobilinogen 4.0 (<2.0) mg/dL Ur Leukocyte Esterase Tr (Negative) Urine WBC (Auto) 1.0 (0.0-6.0) /HPF Urine RBC (Auto) 2.0 (0.0-6.0) /HPF U Epithel Cells (Auto) 4.0 (0-13.0) /HPF Urine Mucus Few /HPF - Radiology Data Radiology results: report reviewed CT head with and without contrast:no acute findings CT abdomen and pelvis with IV contrast: Cholelithiasis no other intra-abdominal process - Medical Decision Making Discharge patient home with pain medications for symptomatic treatment for headache and nausea vomiting. Patient has been on PP eye in the past that she has epigastric pain this will be restarted. - Differential Diagnosis pancreatiti, cholecystitis, cholelithiasis, gastritis, PUD, migraine, ICH, Critical Care Time: No Critical care attestation.: If time is entered above; I have spent that time in minutes in the direct care of this critically ill patient, excluding procedure time. ED Disposition Clinical Impression: HIV disease, Abdominal pain, Headache, Chest pain Disposition: TO HOME OR SELFCARE Is pt being admited?: No Does the pt Need Aspirin: No Condition: Stable Instructions: Abdominal Pain (ED), Acute Headache (ED), Acute Nausea and Vomiting (ED), Chest Pain (ED) Additional Instructions: Take the medications as prescribed. Follow with the primary care clinic provided. Return symptoms worsen. Prescriptions: HYDROcodone/APAP 5-325 [[place] 5-325 mg TAB] 1 - 2 each PO Q6HR PRN #20 tablet PRN Reason: Pain Omeprazole Magnesium [PriLOSEC Otc] 20 mg PO QDAY #30 tablet. Ondansetron [Zofran Odt] 4 mg PO Q8HR PRN #20 tab.rapdis PRN Reason: Nausea And Vomiting Promethazine [Phenergan TAB] 25 mg PO Q6HR PRN #20 tab PRN Reason: Nausea Referrals: [facility] [Provider Group] - 3-5 Days Time of Disposition: 19:03
[2016-08-30 19:12] VITALS: BP 156/93
== END 2016-08-30 20:29 | disposition home or self-care (01) ==
LOC: ED 10:40
DX: R11.2 Nausea with vomiting, unspecified (principal); R10.13 Epigastric pain; R07.9 Chest pain, unspecified; G43.909 Migraine, unspecified, not intractable, without status migrainosus; I10 Essential (primary) hypertension; K21.9 Gastro-esophageal reflux disease without esophagitis; M19.90 Unspecified osteoarthritis, unspecified site; F32.9 Major depressive disorder, single episode, unspecified; F41.9 Anxiety disorder, unspecified; J45.909 Unspecified asthma, uncomplicated; J44.9 Chronic obstructive pulmonary disease, unspecified; E66.9 Obesity, unspecified; Z88.5 Allergy status to narcotic agent; Z88.8 Allergy status to other drugs, medicaments and biological substances
CPT/HCPCS: 36415; 70470; 74177; 80053; 81001; 83690; 85025; 96361; 96374; 96375; 99284; J1170; J1200; J2060; J2270; J2405; J2765; J7030; Q9967

== ENCOUNTER 2016-09-07 10:18 | Emergency (ER) | payer SELFPAY ==
--- NOTE | 2016-09-07 10:25 | Emergency Department Report ---
Chief Complaint: Headache Stated Complaint: HEADACHE,NAUSEA,SOB Time Seen by Provider: 09/07/16 10:19 - HPI History of Present Illness: PT reports headache, n/v x 2 weeks PT states she is also out of her bp medication PT was seen on 08-30-16 for similar symptoms PT has not followed up since previous ED visit - ROS Review of Systems: + night sweats + dry cough + headache + n/v - Exam Physical Exam: obese female. alert and appropriate steady gait abd soft and non tender MSE screening note: Focused history and physical exam performed. Due to findings the following was ordered: labs ED Disposition for MSE Condition: Stable
[2016-09-07 10:26] VITALS: BP 158/112
--- NOTE | 2016-09-07 10:54 | XRay Report ---
CHEST 2 VIEWS INDICATION: Cough, night sweats, HIV. COMPARISON: 08/06/2016. FINDINGS: PA and lateral chest radiographs demonstrate normal cardiomediastinal silhouette. Clear lungs. Right hemidiaphragm again slightly elevated. Thoracic spondylosis. Stable left mid clavicular old deformity. CONCLUSION: No acute disease in the chest. Thank you for the opportunity to participate in this patient's care.
[2016-09-07 11:11] LABS: Bilirubin,Urine NEG (Negative); Blood,Urine NEG (Negative); Ketones,Urine NEG (Negative); Leukocyte Esterase,Urine TR (Negative); Nitrite,Urine NEG (Negative); Urobilinogen,Urine < 2.0 mg/dL (<2.0)
[2016-09-07 11:16] LABS: Basophils % (Auto) 0.5 % (0.0-1.8); Eosinophils % (Auto) 2.7 % (0.0-4.3); Hematocrit 36.1 % (30.3-42.9); Hemoglobin 11.8 gm/dl (10.1-14.3); Mean Corpuscular HGB Conc 33 % (30-34); Mean Corpuscular Volume 77 fl (79-97); Platelet Count 168 K/mm3 (140-440); Red Blood Count 4.67 M/mm3 (3.65-5.03); Red Cell Distribution Width 16.9 % (13.2-15.2); White Blood Count 6.9 K/mm3 (4.5-11.0)
[2016-09-07 11:17] LABS: Mean Corpuscular Hemoglobin 25 pg (28-32)
[2016-09-07 11:48] LABS: Alanine Aminotransferase 19 units/L (7-56); Albumin 3.8 g/dL (3.9-5); Albumin/Globulin Ratio 0.9 %; Alkaline Phosphatase 64 units/L (35-129); Anion Gap 19 mmol/L; BUN/Creatinine Ratio 21.42; Blood Urea Nitrogen 15 mg/dL (7-17); Calcium 8.8 mg/dL (8.4-10.2); Carbon Dioxide 22 mmol/L (22-30); Chloride 101.4 mmol/L (98-107); Glucose 152 mg/dL (65-100); Lipase 43 units/L (13-60); Potassium 3.8 mmol/L (3.6-5.0); Sodium 139 mmol/L (137-145); Total Protein 7.9 g/dL (6.3-8.2)
--- NOTE | 2016-09-08 14:18 | ED Elopement Review ---
ED Pt Elopement review - Results review Lab results: Laboratory Tests 09/07/16 09/07/16 09/07/16 10:40 10:44 10:44 WBC 6.9 RBC 4.67 Hgb 11.8 Hct 36.1 MCV 77 L MCH 25 L MCHC 33 RDW 16.9 H Plt Count 168 Lymph % (Auto) 51.7 H [place] % (Auto) 7.2 Eos % (Auto) 2.7 Baso % (Auto) 0.5 Lymph # 3.6 [place] # 0.5 Eos # 0.2 Baso # 0.0 Seg Neutrophils % 37.9 L Seg Neutrophils # 2.6 Sodium 139 Potassium 3.8 Chloride 101.4 Carbon Dioxide 22 Anion Gap 19 BUN 15 Creatinine 0.7 Estimated GFR > 60 BUN/Creatinine Ratio 21.42 Glucose 152 H Calcium 8.8 Total Bilirubin 0.30 AST 19 ALT 19 Alkaline Phosphatase 64 Total Protein 7.9 Albumin 3.8 L Albumin/Globulin Ratio 0.9 Lipase 43 Urine Color Yellow Urine Turbidity Clear Urine pH 6.0 Ur Specific [place] 1.019 Urine Protein 30 mg/dl Urine Glucose (UA) Neg Urine Ketones Neg Urine Blood Neg Urine Nitrite Neg Urine Bilirubin Neg Urine Urobilinogen < 2.0 Ur Leukocyte Esterase Tr Urine WBC (Auto) 3.0 Urine RBC (Auto) 3.0 U Epithel Cells (Auto) 22.0 H - Call Back decision Pt Call Back Decision: Pt to F/U with PMD
== END 2016-09-07 23:16 | disposition left against medical advice (07) ==
LOC: ED 10:18
DX: R51 Headache (principal); R11.0 Nausea; R06.02 Shortness of breath; Z53.21 Procedure and treatment not carried out due to patient leaving prior to being seen by health care provider
CPT/HCPCS: 36415; 71020; 80053; 81001; 83690; 85025

== ENCOUNTER 2016-10-01 07:29 | Emergency (ER) | payer SELFPAY ==
[2016-10-01 08:39] LABS: Basophils % (Auto) 0.6 % (0.0-1.8); Eosinophils % (Auto) 1.7 % (0.0-4.3); Hematocrit 37.8 % (30.3-42.9); Mean Corpuscular HGB Conc 32 % (30-34); Mean Corpuscular Volume 81 fl (79-97); Red Blood Count 4.69 M/mm3 (3.65-5.03); Red Cell Distribution Width 18.5 % (13.2-15.2); White Blood Count 6.5 K/mm3 (4.5-11.0)
[2016-10-01 08:43] LABS: Mean Corpuscular Hemoglobin 26 pg (28-32)
[2016-10-01 08:58] LABS: Alanine Aminotransferase 18 units/L (7-56); Albumin 3.9 g/dL (3.9-5); Alkaline Phosphatase 59 units/L (35-129); Anion Gap 16 mmol/L; BUN/Creatinine Ratio 23.33; Blood Urea Nitrogen 14 mg/dL (7-17); Calcium 8.9 mg/dL (8.4-10.2); Carbon Dioxide 25 mmol/L (22-30); Chloride 100.9 mmol/L (98-107); Glucose 132 mg/dL (65-100); Lipase 39 units/L (13-60); Potassium 3.8 mmol/L (3.6-5.0); Sodium 138 mmol/L (137-145); Total Protein 7.8 g/dL (6.3-8.2)
[2016-10-01 09:27] LABS: Platelet Count 143 K/mm3 (140-440)
[2016-10-01] MEDS ORDERED: MOTRIN PO ONE (09:38)
[2016-10-01 10:21] LABS: Bacteria,Urine 3+ /HPF (Negative); Bilirubin,Urine NEG (Negative); Blood,Urine NEG (Negative); Ketones,Urine NEG (Negative); Leukocyte Esterase,Urine TR (Negative); Mucus,Urine FEW /HPF; Nitrite,Urine NEG (Negative)
[2016-10-01] MEDS ORDERED: MORPHINE IV ONE ×2 (11:15→13:26)
[2016-10-01] MEDS ORDERED: ZOFRAN IV ONE (11:15)
--- NOTE | 2016-10-01 11:22 | Emergency Department Report ---
HPI - General Chief Complaint: Abdominal Pain Time Seen by Provider: 10/01/16 10:44 - HPI HPI: This is a 50-year-old Afro[place] female presents emergency Department, dropped off by her daughter, with complaint of a 2 day history of pain to the upper abdomen, upper mid flank and with some radiation towards the back. It is associated with some nausea and vomiting. She denies any fever, dysuria, vaginal bleeding, vaginal discharge. She has a past medical history significant for COPD, GERD, HIV, pancreatitis, gallstones, diverticulitis, fibromyalgia and chronic pain. She says that she has not taken anything for symptoms prior to presentation. She says that she has a primary care physician but has not been able to see them regarding her symptoms. No recent travel or sick contacts at home. ED Past Medical Hx - Past Medical History Previous Medical History?: Yes Hx Hypertension: Yes Hx Congestive Heart Failure: No Hx Diabetes: No Hx GERD: Yes Hx Arthritis: Yes Hx Seizures: No Hx Psychiatric Treatment: Yes (depression/anxiety) Hx Asthma: Yes Hx COPD: Yes Hx HIV: Yes (unknown CD4. Viral load undetectable) Additional medical history: Obesity. ulcers, pancreatitis. diverticulitis. ulcers GALL STONES. sleep apnea. glaucoma. fibromyalgia. chronic pain. gallstones - Surgical History Past Surgical History?: Yes Hx Coronary Stent: No (pt reports she doesn't have any coronary stents.) Additional Surgical History: hysterectomy. tonsillectomy - Social History Smoking Status: Never Smoker Substance Use Type: None - Medications Home Medications: Home Medications Medication Instructions Recorded Confirmed Last Taken Type amLODIPine [Norvasc] 10 mg PO DAILY 12/21/12 10/27/15 09/26/15 09:00 History cloNIDine [Catapres] 0.2 mg PO BID 12/21/12 10/27/15 09/26/15 09:00 History Minoxidil [Loniten] 10 mg PO BID 10/16/14 10/27/15 09/26/15 09:00 History Atenolol [Tenormin] 100 mg PO DAILY 04/04/15 10/27/15 09/26/15 09:00 History Xanax TAB 0.5 mg PO BID 04/05/15 10/27/15 09/26/15 09:00 History Benzonatate [Tessalon Perles] 100 mg PO Q8HR #14 capsule 08/05/16 09/04/16 Unknown Rx Efavirenz/Emtricitab/Tenofovir 0 mg PO DAILY 09/27/15 10/27/15 09/26/15 09:00 History [Atripla Tablet] Sulfamethoxazole/Trimethoprim 1 each PO BID #20 tablet 09/27/15 10/27/15 Unknown Rx [Bactrim DS TAB] Zolpidem [Ambien] 5 mg PO QHS PRN 09/27/15 10/27/15 09/26/15 09:00 History Sulfamethoxazole/Trimethoprim 1 each PO BID #20 tablet 10/27/15 Unknown Rx [Bactrim DS TAB] traMADol [Ultram 50 MG tab] 50 mg PO Q6HR PRN #10 tablet 02/28/16 Unknown Rx Promethazine [Phenergan] 25 mg NE Q6HR PRN #7 supp.rect 04/04/16 Unknown Rx Dicyclomine [Bentyl] 20 mg PO QID #10 tablet 08/07/16 Unknown Rx HYDROcodone/APAP 5-325 [[place] 1 - 2 each PO Q6HR PRN #14 tablet 08/07/16 Unknown Rx 5/325] HYDROcodone/APAP 5-325 [[place] 1 - 2 each PO Q6HR PRN #20 tablet 08/30/16 Unknown Rx 5-325 mg TAB] Omeprazole Magnesium [PriLOSEC Otc] 20 mg PO QDAY #30 tablet. 08/30/16 Unknown Rx Ondansetron [Zofran Odt] 4 mg PO Q8HR PRN #20 tab.rapdis 08/30/16 Unknown Rx Promethazine [Phenergan TAB] 25 mg PO Q6HR PRN #20 tab 08/30/16 Unknown Rx traMADol [Ultram 50 MG tab] 50 mg PO Q6HR PRN #10 tablet 10/01/16 Unknown Rx ED Review of Systems ROS: Stated complaint: ABD PAIN/RT SIDE PAIN TO BACK Other details as noted in HPI Comment: All other systems reviewed and negative Constitutional: denies: chills, fever Eyes: denies: eye pain, eye discharge, vision change ENT: denies: ear pain, throat pain Respiratory: denies: cough, shortness of breath, wheezing Cardiovascular: denies: chest pain, palpitations Gastrointestinal: abdominal pain, nausea, vomiting Genitourinary: denies: dysuria, hematuria, discharge Musculoskeletal: back pain. denies: joint swelling Skin: denies: rash, lesions Neurological: denies: headache, weakness, paresthesias Physical Exam - Physical Exam Vital Signs: Vital Signs 10/01/16 07:33 Temperature 98.5 F Pulse Rate 88 Respiratory 16 Rate Blood Pressure 158/92 O2 Sat by Pulse 96 Oximetry Physical Exam: GENERAL: The patient is well-developed well-nourished. HEENT: Normocephalic. Atraumatic. Extraocular motions are intact. Patient has moist mucous membranes. Pupils equal reactive to light bilaterally. NECK: Supple. Trachea is midline. CHEST/LUNGS: Clear to auscultation. There is no respiratory distress noted. HEART/CARDIOVASCULAR: Regular. There is no tachycardia. There is no gallop rub or murmur. ABDOMEN: Abdomen is soft. There is some tenderness to palpation to the right upper quadrant. No guarding or rebound tenderness. Morbidly obese habitus. Patient has normal bowel sounds. There is no abdominal distention. SKIN: Skin is warm and dry. NEURO: The patient is awake, alert, and oriented. The patient is cooperative. The patient has no focal neurologic deficits. The patient has normal speech. MUSCULOSKELETAL: There is no tenderness or deformity. There is no limitation range of motion. There is no evidence of acute injury. ED Course Vital Signs 10/01/16 07:33 Temperature 98.5 F Pulse Rate 88 Respiratory 16 Rate Blood Pressure 158/92 O2 Sat by Pulse 96 Oximetry ED Medical Decision Making - Lab Data Result diagrams: 10/01/16 08:21 10/01/16 08:21 - Radiology Data Radiology results: report reviewed Upper abdominal ultrasound shows a suspected small polyp within the gallbladder. Probable fatty liver. CT of the abdomen and pelvis without contrast shows cholelithiasis without cholecystitis. - Medical Decision Making 50-year-old presents with some upper abdominal pain, right flank pain with some radiation towards the back as well as nausea and vomiting. Labs are mostly unremarkable. Ultrasound shows concern for a gallbladder polyp and some fatty liver. A CT was done that shows cholelithiasis without cholecystitis. Patient was given some pain control and nausea medication. Vital signs stable throughout ED course. She was given referrals for both general surgery and gastroenterology and encouraged follow-up with her primary care physician. She will return to the ER with any worsening of her symptoms or any acute distress. - Differential Diagnosis cholelithiasis, cholecystitis, pancreatitis, nephrolithiasis, pyelonephriti Critical Care Time: No Critical care attestation.: If time is entered above; I have spent that time in minutes in the direct care of this critically ill patient, excluding procedure time. ED Disposition Clinical Impression: Biliary colic Abdominal pain Qualifiers: Abdominal location: unspecified location Qualified Code(s): R10.9 - Unspecified abdominal pain Cholelithiasis Qualifiers: Cholelithiasis location: gallbladder Cholecystitis presence: without cholecystitis Biliary obstruction: without biliary obstruction Qualified Code(s) : K80.20 - Calculus of gallbladder without cholecystitis without obstruction Disposition: TO HOME OR SELFCARE Is pt being admited?: No Condition: Stable Instructions: Biliary Colic (ED), Abdominal Pain (ED) Additional Instructions: Please follow-up with your primary care physician in the next few days. I have given you a referral for a local surgeon, Dr. Mota, in case she needs to follow-up regarding your biliary colic and gallstones for possible outpatient surgical removal. I have also given a referral for a local striker off, Dr. Hawkins, who can also evaluate she will regarding your gallstones and abdominal pain. Return to the emergency department with any worsening of your symptoms or any acute distress. You've been prescribed a medication that is sedating. Therefore this medication cannot be mixed with alcohol, or taken prior to driving, working, or being responsible for children. Prescriptions: traMADol [Ultram 50 MG tab] 50 mg PO Q6HR PRN #10 tablet PRN Reason: Pain Referrals: PRIMARY CARE, [Primary Care Provider] - 3-5 Days MICHELINE MOTA MD [Staff Physician] - 3-5 Days IZZY HAWKINS MD [Staff Physician] - 3-5 Days Time of Disposition: 16:32
--- NOTE | 2016-10-01 13:30 | Ultrasound Report ---
Sonogram right upper quadrant: History: abdominal pain. Findings: Mildly echogenic liver may be due to fatty liver. No intrahepatic or extrahepatic duct dilatation. Common bile duct diameter 4.9 mm. Gallbladder wall thickness 2.2 mm. Small focal echogenic focus is identified within the gallbladder measuring 3-4 mm in diameter probably a polyp. This is seen adjacent to the wall. No pericholecystic fluid. Right kidney 9.2 x 5.2 x 4.5 cm. Cortical thickness and 2.9 cm. No mass. No hydronephrosis. Normal pancreas. Impression: Suspected small polyp within the gallbladder. Probable fatty liver.
[2016-10-01] MEDS ORDERED: ATIVAN IV ONE (15:08)
--- NOTE | 2016-10-01 16:20 | Cat Scan Report ---
CT pelvis without contrast: Flank pain Transverse images were obtained from lower chest to the ischium. 2-D coronal and sagittal reconstructions included. The lung bases are normal. A tiny gallbladder calculus is present. No evidence of inflammation. The abdominal organs are not otherwise remarkable. No evidence of urinary calculus or hydronephrosis. Urinary bladder appears unremarkable. The unopacified bowel and mesentery is grossly unremarkable. The appendix is not identified. No evidence of an inflammatory process identified. The uterus is been removed. Compared to prior CT on August 07, 2016 there has been no significant change. Impression: Cholelithiasis.
[2016-10-01 17:02] VITALS: BP 147/86
== END 2016-10-01 17:03 | disposition home or self-care (01) ==
LOC: ED 07:29
DX: K80.20 Calculus of gallbladder without cholecystitis without obstruction (principal); K80.50 Calculus of bile duct without cholangitis or cholecystitis without obstruction; I10 Essential (primary) hypertension; K21.9 Gastro-esophageal reflux disease without esophagitis; J45.909 Unspecified asthma, uncomplicated; J44.9 Chronic obstructive pulmonary disease, unspecified
CPT/HCPCS: 36415; 74176; 76705; 80053; 81001; 83690; 84702; 85025; 86850; 86900; 86901; 96374; 96375; 96376; 99284; J2060; J2270; J2405

== ENCOUNTER 2016-10-26 17:58 | Emergency (ER) | payer SELFPAY ==
--- NOTE | 2016-10-26 18:11 | Emergency Department Report ---
Chief Complaint: Abdominal Pain Stated Complaint: ABD PAIN/N/V/D Time Seen by Provider: 10/26/16 18:05 - HPI History of Present Illness: PT c/o abd pain, chest pain, n/v x 4-5 hours PT states this is how she felt last month when she was dx with billiary colic - ROS Review of Systems: + n/v + diarrhea for a couple of days + chest pain - Exam Physical Exam: obese female no acute distress + epigastric pain MSE screening note: Focused history and physical exam performed. Due to findings the following was ordered: ekg, labs, xr ED Disposition for MSE Condition: Stable
[2016-10-26 18:35] LABS: Basophils % (Auto) 0.6 % (0.0-1.8); Eosinophils % (Auto) 1.2 % (0.0-4.3); Hematocrit 39.3 % (30.3-42.9); Hemoglobin 12.5 gm/dl (10.1-14.3); Mean Corpuscular HGB Conc 32 % (30-34); Mean Corpuscular Volume 81 fl (79-97); Platelet Count 183 K/mm3 (140-440); Red Blood Count 4.83 M/mm3 (3.65-5.03); Red Cell Distribution Width 16.5 % (13.2-15.2)
[2016-10-26 18:46] LABS: Mean Corpuscular Hemoglobin 26 pg (28-32)
[2016-10-26 19:17] LABS: Alanine Aminotransferase 39 units/L (7-56); Albumin 3.9 g/dL (3.9-5); Alkaline Phosphatase 68 units/L (35-129); Anion Gap 16 mmol/L; BUN/Creatinine Ratio 24.44; Blood Urea Nitrogen 22 mg/dL (7-17); Calcium 9.4 mg/dL (8.4-10.2); Carbon Dioxide 29 mmol/L (22-30); Chloride 100.7 mmol/L (98-107); Glucose 97 mg/dL (65-100); Lipase 57 units/L (13-60); Potassium 4.2 mmol/L (3.6-5.0); Sodium 141 mmol/L (137-145); Total Protein 7.7 g/dL (6.3-8.2)
[2016-10-27 01:49] LABS: Bilirubin,Urine NEG (Negative); Blood,Urine NEG (Negative); Ketones,Urine NEG (Negative); Leukocyte Esterase,Urine NEG (Negative); Nitrite,Urine NEG (Negative)
[2016-10-27 02:24] VITALS: BP 154/73
[2016-10-27] MEDS ORDERED: ZOFRAN IV ONE (02:32)
[2016-10-27] MEDS ORDERED: MORPHINE IV ONE ×2 (02:32→03:39)
--- NOTE | 2016-10-27 02:55 | Emergency Department Report ---
HPI - General Chief Complaint: Abdominal Pain Time Seen by Provider: 10/26/16 18:05 - HPI HPI: This is a 50 year-old female presents to the emergency department via EMS from home with complaint of right upper quadrant abdominal pain with some radiation towards the right side of her back has been going on for about 4-5 hours prior to presentation. It is associated with some nausea and vomiting. The patient was diagnosed with some gallstones and biliary colic about one month ago and she says that this feels similar. She did not take anything for her symptoms prior to Presentation. No recent travel or sick contacts at home. She does not have a primary care physician. She has a past medical history includes asthma, COPD, GERD, HIV, pancreatitis, diverticulosis, sleep apnea and fibromyalgia. ED Past Medical Hx - Past Medical History Hx Hypertension: Yes Hx Congestive Heart Failure: No Hx Diabetes: No Hx GERD: Yes Hx Arthritis: Yes Hx Seizures: No Hx Psychiatric Treatment: Yes (depression/anxiety) Hx Asthma: Yes Hx COPD: Yes Hx HIV: Yes (unknown CD4. Viral load undetectable) Additional medical history: Obesity. ulcers, pancreatitis. diverticulitis. ulcers GALL STONES. sleep apnea. glaucoma. fibromyalgia. chronic pain. gallstones - Surgical History Hx Coronary Stent: No (pt reports she doesn't have any coronary stents.) Additional Surgical History: hysterectomy. tonsillectomy - Social History Smoking Status: Never Smoker Substance Use Type: None - Medications Home Medications: Home Medications Medication Instructions Recorded Confirmed Last Taken Type amLODIPine [Norvasc] 10 mg PO DAILY 12/21/12 10/27/15 09/26/15 09:00 History cloNIDine [Catapres] 0.2 mg PO BID 12/21/12 10/27/15 09/26/15 09:00 History Minoxidil [Loniten] 10 mg PO BID 10/16/14 10/27/15 09/26/15 09:00 History Atenolol [Tenormin] 100 mg PO DAILY 04/04/15 10/27/15 09/26/15 09:00 History Xanax TAB 0.5 mg PO BID 04/05/15 10/27/15 09/26/15 09:00 History Benzonatate [Tessalon Perles] 100 mg PO Q8HR #14 capsule 09/27/15 10/27/15 Unknown Rx Efavirenz/Emtricitab/Tenofovir 0 mg PO DAILY 09/27/15 10/27/15 09/26/15 09:00 History [Atripla Tablet] Sulfamethoxazole/Trimethoprim 1 each PO BID #20 tablet 09/27/15 10/27/15 Unknown Rx [Bactrim DS TAB] Zolpidem [Ambien] 5 mg PO QHS PRN 09/27/15 10/27/15 09/26/15 09:00 History Sulfamethoxazole/Trimethoprim 1 each PO BID #20 tablet 10/27/15 Unknown Rx [Bactrim DS TAB] Dicyclomine [Bentyl] 20 mg PO QID #10 tablet 08/07/16 Unknown Rx Omeprazole Magnesium [PriLOSEC Otc] 20 mg PO QDAY #30 tablet. 08/30/16 Unknown Rx Ondansetron [Zofran Odt] 4 mg PO Q8HR PRN #20 tab.rapdis 08/30/16 Unknown Rx Metoclopramide [Reglan] 10 mg PO TID PRN #10 tab 10/27/16 Unknown Rx traMADol [Ultram] 50 mg PO Q6HR PRN #12 tablet 10/27/16 Unknown Rx ED Review of Systems ROS: Stated complaint: ABD PAIN/N/V/D Other details as noted in HPI Comment: All other systems reviewed and negative Constitutional: denies: chills, fever Eyes: denies: eye pain, eye discharge, vision change ENT: denies: ear pain, throat pain Respiratory: denies: cough, shortness of breath, wheezing Cardiovascular: denies: chest pain, palpitations Gastrointestinal: abdominal pain, nausea, vomiting Genitourinary: denies: urgency, dysuria, discharge Musculoskeletal: back pain. denies: arthralgia Skin: denies: rash, lesions Neurological: denies: headache, weakness, paresthesias Physical Exam - Physical Exam Vital Signs: Vital Signs 10/26/16 10/26/16 10/27/16 18:05 23:08 02:23 Temperature 98.7 F 98.1 F Pulse Rate 96 H 86 84 Respiratory 21 18 16 Rate Blood Pressure 191/103 192/95 Blood Pressure 154/73 [Left] O2 Sat by Pulse 96 97 98 Oximetry Physical Exam: GENERAL: The patient is well-developed well-nourished. HENT: Normocephalic. Atraumatic. Patient has moist mucous membranes. EYES: Extraocular motions are intact. Pupils equal reactive to light bilaterally. NECK: Supple. Trachea is midline. CHEST/LUNGS: Clear to auscultation. There is no respiratory distress noted. HEART/CARDIOVASCULAR: Regular. There is no tachycardia. There is no gallop rub or murmur. ABDOMEN: Abdomen is soft. There is reproducible tenderness palpation to the right upper quadrant of the abdomen. No guarding or rebound tenderness. Morbidly obese habitus. Patient has normal bowel sounds. There is no abdominal distention. SKIN: Skin is warm and dry. NEURO: The patient is awake, alert, and oriented. The patient is cooperative. The patient has no focal neurologic deficits. The patient has normal speech. MUSCULOSKELETAL: There is no tenderness or deformity. There is no limitation range of motion. There is no evidence of acute injury. ED Course Vital Signs 10/26/16 10/26/16 10/27/16 18:05 23:08 02:23 Temperature 98.7 F 98.1 F Pulse Rate 96 H 86 84 Respiratory 21 18 16 Rate Blood Pressure 191/103 192/95 Blood Pressure 154/73 [Left] O2 Sat by Pulse 96 97 98 Oximetry ED Medical Decision Making - Lab Data Result diagrams: 10/26/16 18:22 10/26/16 18:22 - EKG Data -: EKG Interpreted by Me EKG shows normal: sinus rhythm, axis (left axis deviation), intervals, QRS complexes (left anterior fascicular block, LVH, Q waves in septal leads), ST-T waves Rate: normal - EKG Data When compared to previous EKG there are: no significant change Interpretation: unchanged when compared t (07/2016) - Radiology Data Radiology results: report reviewed, image reviewed interpreted by me: Chest x-ray does not show any acute process. There are no pleural effusions, obvious pneumonia and there is no pneumothorax. Abdominal ultrasound shows cholelithiasis. Gallbladder wall thickness in the upper limits of normal. No biliary dilatation. Mild diffuse fatty infiltration of the liver. - Medical Decision Making 50-year-old female with a history of cholelithiasis and biliary colic presents with a one-day history of upper abdominal pain, nausea and vomiting. Vital signs stable including being afebrile. She had some hypertension but came down with some in control. Labs are unremarkable including normal lipase, LFTs and bilirubin. No urinary tract infection. Abdominal ultrasound shows cholelithiasis without cholecystitis and fatty liver disease. Both of these are consistent with previous imaging. There is been no further vomiting within the emergency department. Patient had some relief of her discomfort. She does not appear to require admission or immediate surgical intervention. She'll be discharged home with a small amount of pain medication and encouragement to follow up with general surgery to establish care for possible elective outpatient cholecystectomy. However she has been encouraged to return to the emergency Department with any worsening of her symptoms or any acute distress. - Differential Diagnosis cholelithiasis, cholecystitis, pancreatitis, colitis Critical Care Time: No Critical care attestation.: If time is entered above; I have spent that time in minutes in the direct care of this critically ill patient, excluding procedure time. ED Disposition Clinical Impression: Biliary colic, Fatty liver disease, nonalcoholic Abdominal pain Qualifiers: Abdominal location: right upper quadrant Qualified Code(s): R10.11 - Right upper quadrant pain Cholelithiases Qualifiers: Cholelithiasis location: gallbladder Cholecystitis presence: without cholecystitis Biliary obstruction: without biliary obstruction Qualified Code(s) : K80.20 - Calculus of gallbladder without cholecystitis without obstruction Disposition: - TO HOME OR SELFCARE Is pt being admited?: No Condition: Stable Instructions: Biliary Colic (ED), Abdominal Pain (ED) Additional Instructions: Please follow-up with your primary care doctor in the next few days. I have given you a referral for a local general surgeon, Dr. Mota, to follow up with and establish care for your gallstones. Return to the emergency Department with any worsening of your symptoms or any acute distress. Try and stay away from foods that are greasy, fatty and avoid any alcohol consumption. You have been prescribed a medication that is sedating and therefore should not be taken prior to driving, working, and responsible for children and in no way should be mixed with alcohol of any quantity. Prescriptions: Metoclopramide [Reglan] 10 mg PO TID PRN #10 tab PRN Reason: Nausea traMADol [Ultram] 50 mg PO Q6HR PRN #12 tablet PRN Reason: Pain Referrals: MICHELINE MOTA MD [Staff Physician] - 3-5 Days Time of Disposition: 03:57
--- NOTE | 2016-10-27 03:46 | Ultrasound Report ---
FINAL REPORT EXAM: US ABDOMEN LIMITED HISTORY: RUQ pain COMPARISON: CT of the abdomen and pelvis from August 30, 2016. TECHNIQUE: Several real-time grayscale and color Doppler images were obtained. FINDINGS: There is increased echogenicity of the liver compatible with fatty infiltration. Right kidney measures 8.9 centimeters in length. No hydronephrosis. No large renal lesion. Patient body habitus and bowel gas somewhat limits evaluation of the solid organs. The common bile duct measures 4 millimeters within normal limits. Tiny gallstones towards the gallbladder neck. Gallbladder wall thickness 3 millimeters, upper limits of normal. IMPRESSION: Cholelithiasis. Gallbladder wall thickness upper limits of normal. No biliary dilatation. Mild diffuse fatty infiltration of the liver.
--- NOTE | 2016-10-27 07:42 | XRay Report ---
ROUTINE CHEST, TWO VIEWS: HISTORY: chest pain. The trachea, heart, mediastinal contour, lung zaragoza and bony thorax are unremarkable. IMPRESSION: Unremarkable chest x-ray. No significant change since 09/07/16.
== END 2016-10-27 04:17 | disposition home or self-care (01) ==
LOC: ED 17:58
DX: K80.20 Calculus of gallbladder without cholecystitis without obstruction (principal); K80.50 Calculus of bile duct without cholangitis or cholecystitis without obstruction; K76.0 Fatty (change of) liver, not elsewhere classified; I10 Essential (primary) hypertension; K21.9 Gastro-esophageal reflux disease without esophagitis; M19.90 Unspecified osteoarthritis, unspecified site; J44.9 Chronic obstructive pulmonary disease, unspecified
CPT/HCPCS: 36415; 71020; 76705; 80053; 81001; 83690; 84484; 85025; 93005; 93010; 96374; 96375; 96376; 99285; J2270; J2405

== ENCOUNTER 2016-11-10 00:10 | Inpatient (IN) | payer OTHER ==
[2016-11-10 02:18] LABS: Basophils % (Auto) 0.6 % (0.0-1.8); Eosinophils % (Auto) 2.1 % (0.0-4.3); Hematocrit 37.2 % (30.3-42.9); Hemoglobin 12.3 gm/dl (10.1-14.3); Mean Corpuscular HGB Conc 33 % (30-34); Mean Corpuscular Hemoglobin 27 pg (28-32); Mean Corpuscular Volume 80 fl (79-97); Platelet Count 155 K/mm3 (140-440); Red Blood Count 4.63 M/mm3 (3.65-5.03); White Blood Count 5.6 K/mm3 (4.5-11.0)
[2016-11-10 02:42] LABS: Alanine Aminotransferase 15 units/L (7-56); Albumin/Globulin Ratio 1.3 %; Alkaline Phosphatase 61 units/L (35-129); Anion Gap 18 mmol/L; Blood Urea Nitrogen 22 mg/dL (7-17); Carbon Dioxide 25 mmol/L (22-30); Chloride 103.1 mmol/L (98-107); Glucose 135 mg/dL (65-100); Lipase 58 units/L (13-60); Potassium 3.8 mmol/L (3.6-5.0); Sodium 142 mmol/L (137-145); Total Protein 7.1 g/dL (6.3-8.2)
[2016-11-10] MEDS ORDERED: MORPHINE IV ONE (06:43)
[2016-11-10] MEDS ORDERED: ZOFRAN IV ONE (06:43)
[2016-11-10] MEDS ORDERED: NACL 0.9% 1000 ML 1,000 ML IV ONE (06:43)
--- NOTE | 2016-11-10 06:49 | Emergency Department Report ---
ED Abdominal Pain HPI - General Chief Complaint: Abdominal Pain Stated Complaint: NAUSEA AND VOMITING Time Seen by Provider: 11/10/16 06:30 Source: patient Mode of arrival: Stretcher Limitations: No Limitations - History of Present Illness Initial Comments: 50-year-old female who presents to emergency department complaining of right upper quadrant pain. Patient has had this pain off and on for approximately one year. She presents today with worsening pain over the last 2 weeks. She states she is having some nausea and vomiting. No fevers but some chills. She states that she was here 2 weeks ago with similar presentation and had an ultrasound that showed gallstones. -: Gradual, week(s) (2) Location: RUQ Radiation: none Migration to: no migration Severity: severe Quality: aching Consistency: colicky Improves With: nothing Worsens With: eating Associated Symptoms: nausea, vomiting, chills. denies: diarrhea, fever, constipation, dysuria, hematemesis, hematochezia - Related Data Home Medications Medication Instructions Recorded Confirmed Last Taken amLODIPine [Norvasc] 10 mg PO DAILY 12/21/12 10/27/15 09/26/15 09:00 cloNIDine [Catapres] 0.2 mg PO BID 12/21/12 10/27/15 09/26/15 09:00 Minoxidil [Loniten] 10 mg PO BID 10/16/14 10/27/15 09/26/15 09:00 Atenolol [Tenormin] 100 mg PO DAILY 04/04/15 10/27/15 09/26/15 09:00 Xanax TAB 0.5 mg PO BID 04/05/15 10/27/15 09/26/15 09:00 Efavirenz/Emtricitab/Tenofovir 0 mg PO DAILY 09/27/15 10/27/15 09/26/15 09:00 [Atripla Tablet] Zolpidem [Ambien] 5 mg PO QHS PRN 09/27/15 10/27/15 09/26/15 09:00 Previous Rx's Medication Instructions Recorded Last Taken Type Benzonatate [Tessalon Perles] 100 mg PO Q8HR #14 capsule 09/27/15 Unknown Rx Sulfamethoxazole/Trimethoprim 1 each PO BID #20 tablet 09/27/15 Unknown Rx [Bactrim DS TAB] Sulfamethoxazole/Trimethoprim 1 each PO BID #20 tablet 10/27/15 Unknown Rx [Bactrim DS TAB] Dicyclomine [Bentyl] 20 mg PO QID #10 tablet 08/07/16 Unknown Rx Omeprazole Magnesium [PriLOSEC Otc] 20 mg PO QDAY #30 tablet. 08/30/16 Unknown Rx Ondansetron [Zofran Odt] 4 mg PO Q8HR PRN #20 tab.rapdis 08/30/16 Unknown Rx Metoclopramide [Reglan] 10 mg PO TID PRN #10 tab 10/27/16 Unknown Rx traMADol [Ultram] 50 mg PO Q6HR PRN #12 tablet 10/27/16 Unknown Rx Allergies Allergy/AdvReac Type Severity Reaction Status Date / Time codeine Allergy Angioedema Verified 10/26/16 18:10 lisinopril Allergy Angioedema Verified 10/26/16 18:10 ED Review of Systems ROS: Stated complaint: NAUSEA AND VOMITING Other details as noted in HPI Comment: All other systems reviewed and negative Constitutional: denies: chills, fever Eyes: denies: eye pain, eye discharge, vision change ENT: denies: ear pain, throat pain Respiratory: denies: cough, shortness of breath, wheezing Cardiovascular: denies: chest pain, palpitations Endocrine: no symptoms reported Gastrointestinal: denies: abdominal pain, nausea, diarrhea Genitourinary: denies: urgency, dysuria, discharge Musculoskeletal: denies: back pain, joint swelling, arthralgia Skin: denies: rash, lesions Neurological: denies: headache, weakness, paresthesias Psychiatric: denies: anxiety, depression Hematological/Lymphatic: denies: easy bleeding, easy bruising ED Past Medical Hx - Past Medical History Hx Hypertension: Yes Hx Congestive Heart Failure: No Hx Diabetes: No Hx GERD: Yes Hx Arthritis: Yes Hx Seizures: No Hx Psychiatric Treatment: Yes (depression/anxiety) Hx Asthma: Yes Hx COPD: Yes Hx HIV: Yes (unknown CD4. Viral load undetectable) Additional medical history: Obesity. ulcers, pancreatitis. diverticulitis. ulcers GALL STONES. sleep apnea. glaucoma. fibromyalgia. chronic pain. gallstones - Surgical History Hx Coronary Stent: No (pt reports she doesn't have any coronary stents.) Additional Surgical History: hysterectomy. tonsillectomy - Family History Family history: no significant - Social History Smoking Status: Never Smoker Substance Use Type: None - Medications Home Medications: Home Medications Medication Instructions Recorded Confirmed Last Taken Type amLODIPine [Norvasc] 10 mg PO DAILY 12/21/12 10/27/15 09/26/15 09:00 History cloNIDine [Catapres] 0.2 mg PO BID 12/21/12 10/27/15 09/26/15 09:00 History Minoxidil [Loniten] 10 mg PO BID 10/16/14 10/27/15 09/26/15 09:00 History Atenolol [Tenormin] 100 mg PO DAILY 04/04/15 10/27/15 09/26/15 09:00 History Xanax TAB 0.5 mg PO BID 04/05/15 10/27/15 09/26/15 09:00 History Benzonatate [Tessalon Perles] 100 mg PO Q8HR #14 capsule 09/27/15 10/27/15 Unknown Rx Efavirenz/Emtricitab/Tenofovir 0 mg PO DAILY 09/27/15 10/27/15 09/26/15 09:00 History [Atripla Tablet] Sulfamethoxazole/Trimethoprim 1 each PO BID #20 tablet 09/27/15 10/27/15 Unknown Rx [Bactrim DS TAB] Zolpidem [Ambien] 5 mg PO QHS PRN 09/27/15 10/27/15 09/26/15 09:00 History Sulfamethoxazole/Trimethoprim 1 each PO BID #20 tablet 10/27/15 Unknown Rx [Bactrim DS TAB] Dicyclomine [Bentyl] 20 mg PO QID #10 tablet 08/07/16 Unknown Rx Omeprazole Magnesium [PriLOSEC Otc] 20 mg PO QDAY #30 tablet. 08/30/16 Unknown Rx Ondansetron [Zofran Odt] 4 mg PO Q8HR PRN #20 tab.williams 08/30/16 Unknown Rx Metoclopramide [Reglan] 10 mg PO TID PRN #10 tab 10/27/16 Unknown Rx traMADol [Ultram] 50 mg PO Q6HR PRN #12 tablet 10/27/16 Unknown Rx ED Physical Exam - General Limitations: No Limitations General appearance: alert, in no apparent distress, obese - Head Head exam: Present: atraumatic, normocephalic - Eye Eye exam: Present: normal appearance. Absent: scleral icterus, conjunctival injection - ENT ENT exam: Present: mucous membranes moist - Neck Neck exam: Present: normal inspection - Respiratory Respiratory exam: Present: normal lung sounds bilaterally. Absent: respiratory distress, wheezes - Cardiovascular Cardiovascular Exam: Present: regular rate, normal rhythm, normal heart sounds. Absent: systolic murmur, diastolic murmur, rubs, gallop - GI/Abdominal GI/Abdominal exam: Present: soft, distended, tenderness (RUQ), guarding ( voluntary guarding), normal bowel sounds - Extremities Exam Extremities exam: Present: normal inspection - Back Exam Back exam: Present: normal inspection - Neurological Exam Neurological exam: Present: alert, oriented X3 - Psychiatric Psychiatric exam: Present: normal affect, normal mood - Skin Skin exam: Present: warm, dry, intact, normal color. Absent: rash ED Course Vital Signs 11/10/16 11/10/16 00:22 05:35 Temperature 98.3 F 98.2 F Pulse Rate 108 H 77 Respiratory 20 18 Rate Blood Pressure 163/88 185/101 O2 Sat by Pulse 99 98 Oximetry ED Medical Decision Making - Lab Data Result diagrams: 11/10/16 01:54 11/10/16 01:54 Laboratory Results - last 24 hr 11/10/16 11/10/16 01:54 01:54 WBC 5.6 RBC 4.63 Hgb 12.3 Hct 37.2 MCV 80 MCH 27 L MCHC 33 RDW 16.0 H Plt Count 155 Lymph % (Auto) 35.7 H Ransom % (Auto) 5.7 Eos % (Auto) 2.1 Baso % (Auto) 0.6 Lymph # 2.0 Ransom # 0.3 Eos # 0.1 Baso # 0.0 Seg Neutrophils % 55.9 Seg Neutrophils # 3.1 Sodium 142 Potassium 3.8 Chloride 103.1 Carbon Dioxide 25 Anion Gap 18 BUN 22 H Creatinine 0.8 Estimated GFR > 60 BUN/Creatinine Ratio 27.50 Glucose 135 H Calcium 9.0 Total Bilirubin 0.20 AST 14 ALT 15 Alkaline Phosphatase 61 Total Protein 7.1 Albumin 4.0 Albumin/Globulin Ratio 1.3 Lipase 58 - Medical Decision Making 50-year-old female morbidly obese with HIV here with complaint of right upper quadrant pain. Patient has had similar pain for the past 2 weeks however it is worsening significantly over the past few days. She is having nausea and feels like she cannot eat. Pain is worse with eating. She has known gallstones on ultrasound and had a thickened gallbladder wall last time she was here. Her LFTs are normal here. She has no fever here. Given her continued pain and tenderness I suspect a HIDA scan will be necessary at this point. Plan is discussed with surgery. Discussed case with surgery on-call, Dr. Bermeo - plan to get HIDA scan and admit patient to the hospital service. Portions of this chart were dictated with dictation software. There may be dictation errors contained within this note. Critical care attestation.: If time is entered above; I have spent that time in minutes in the direct care of this critically ill patient, excluding procedure time. ED Disposition Clinical Impression: Abdominal pain, Biliary colic Disposition: OP ADMIT IP TO THIS HOSP Is pt being admited?: Yes Condition: Stable Instructions: Abdominal Pain (ED) Referrals: PRIMARY CARE, [Primary Care Provider] - 3-5 Days
--- NOTE | 2016-11-10 09:43 | History and Physical Report ---
<DEIRDRE CABRERA - Last Filed: 11/10/16 15:24> History of Present Illness Date of examination: 11/10/16 Date of admission: 11/10/2016 Chief complaint: Abdominal pain, nausea vomiting History of present illness: Patient is a 50-year-old Afro-[place]ian female with past medical history of hypertension COPD, GERD, HIV, pancreatitis, gallstones, diverticulitis, fibromyalgia and chronic pain who presents emergency Department, with complaint of a 2 day history of pain to the upper abdomen, upper mid flank and with some radiation towards the back. It is associated with some nausea and vomiting. She localizes the pain to her epigastric area and states that it radiates to her right upper quadrant. She notes that it became markedly worse after eating dinner last night. She denies a recent history of fever, jaundice, pruritis, diarrhea, hemoptysis, melena, or hematochezia. She denies a known history of hemorrhoids, diverticulitis, colon cancer, peptic ulcer disease, gastritis, acid reflux. patient stated that she has scheduled to see a surgeon within 2 weeks for removal of gallstones. Past History Past Medical History: COPD (COPD, GERD, HIV, pancreatitis, gallstones, diverticulitis, fibromyalgia), GERD, HIV/AIDS ( gallstones, diverticulitis, fibromyalgia), hypertension, other Past Surgical History: No surgical history Social history: lives with family. denies: smoking, alcohol abuse Family history: CAD, hypertension Medications and Allergies Allergies Allergy/AdvReac Type Severity Reaction Status Date / Time codeine Allergy Angioedema Verified 10/26/16 18:10 lisinopril Allergy Angioedema Verified 10/26/16 18:10 Home Medications Medication Instructions Recorded Confirmed Last Taken Type amLODIPine [Norvasc] 10 mg PO DAILY 12/21/12 11/10/16 11/09/16 History cloNIDine [Catapres] 0.2 mg PO BID 12/21/12 11/10/16 11/09/16 History Atenolol [Tenormin] 100 mg PO DAILY 04/04/15 11/10/16 11/09/16 History Zolpidem [Ambien] 5 mg PO QHS PRN 09/27/15 11/10/16 11/09/16 History Omeprazole Magnesium [PriLOSEC Otc] 20 mg PO QDAY #30 tablet.dr 08/30/1611/09/16 Rx ALPRAZolam [Xanax TAB] 1 mg PO BID PRN 11/10/16 11/10/16 11/09/16 History Albuterol Sulfate [Ventolin HFA] 1 puff IH BID PRN 11/10/16 11/10/16 Unknown History Citalopram [Celexa] 40 mg PO DAILY 11/10/16 11/10/16 11/09/16 History Emtricitab/Rilpiviri/Tenof Ala 1 each PO DAILY 11/10/16 11/10/16 11/09/16 History [Odefsey Tablet] Furosemide [Lasix TAB] 40 mg PO QDAY 11/10/16 11/10/16 Unknown History Gabapentin [Neurontin] 300 mg PO TID 11/10/16 11/10/16 Unknown History Minoxidil [Loniten] 5 mg PO BID 11/10/16 11/10/16 11/09/16 History Naproxen Sodium [Aleve TAB] 220 mg PO Q8H PRN 11/10/16 11/10/16 11/09/16 History Promethazine [Phenergan TAB] 25 mg PO Q8HR PRN 11/10/16 11/10/16 Unknown History Simvastatin [Zocor TAB] 20 mg PO QHS 11/10/16 11/10/16 Unknown History Sucralfate [Carafate] 10 ml PO PRN 11/10/16 11/10/16 Unknown History Sulfamethoxazole/Trimethoprim 1 each PO DAILY 11/10/16 11/10/16 Unknown History [Bactrim DS TAB] Active Meds: Active Medications Acetaminophen (Tylenol) 650 mg PO Q4H PRN PRN Reason: Pain MILD(1-3)/Fever >100.5/HOLDER Amlodipine Besylate (Norvasc) 10 mg PO DAILY [facility] Benzonatate (Tessalon Perles) 100 mg PO Q8HR [facility] Bisacodyl (Dulcolax) 10 mg [place] QDAY PRN PRN Reason: Constipation unrelieved by MOM Clonidine HCl (Catapres) 0.2 mg PO BID [facility] Dicyclomine HCl (Bentyl) 20 mg PO QID [facility] Dextrose/Sodium Chloride (D5/0.45ns) 1,000 mls @ 100 mls/hr IV DIRECT [facility] Metoclopramide HCl (Reglan) 10 mg PO TID PRN PRN Reason: Nausea Minoxidil (Loniten) 10 mg PO BID [facility] Miscellaneous Medication (Atenolol [Tenormin]) 100 mg PO DAILY [facility] Miscellaneous Medication (Omeprazole Magnesium [Prilosec Otc]) 20 mg PO QDAY [facility] Morphine Sulfate (Morphine) 2 mg IV Q4H PRN PRN Reason: Pain, Moderate (4-6) Zolpidem Tartrate (Ambien) 5 mg PO QHS PRN PRN Reason: Sleep Review of Systems Constitutional: no weight gain, no fever, no chills Ears, nose, mouth and throat: no ear pain, no ear discharge, no tinnitis, no decreased hearing, no nose pain Breasts: no change in shape, no swelling Cardiovascular: no chest pain, no orthopnea, no palpitations, no rapid/ irregular heart beat Respiratory: no excessive sputum, no hemoptysis, no shortness of breath, no dyspnea on exertion Gastrointestinal: abdominal pain, nausea, vomiting, no diarrhea, no constipation , no change in bowel habits, no hematemesis Genitourinary Female: no dysmenorrhea, no pelvic pain, no flank pain, no menorrhagia, no urinary frequency Menstruation: no ammenorrhea, no ammenorrhea on BC, no period heavy Musculoskeletal: no shooting arm pain, no arm numbness/tingling, no low back pain, no shooting leg pain Integumentary: no redness, no sores, no wounds, no jaundice Neurological: no weakness, no parathesias, no numbness, no tingling, no seizures Psychiatric: no anxiety, no memory loss, no change in sleep habits Endocrine: no heat intolerance, no polyphagia, no excessive thirst, no polydipsia Hematologic/Lymphatic: no easy bruising, no easy bleeding Allergic/Immunologic: no urticaria, no allergic rhinitis Exam - Constitutional Vitals: Temp Pulse Resp BP Pulse Ox 98.7 F 84 16 162/93 97 11/10/16 07:15 11/10/16 07:15 11/10/16 07:15 11/10/16 07:15 11/10/16 07:15 General appearance: Present: no acute distress - EENT Eyes: Present: PERRL ENT: hearing intact - Neck Neck: Present: supple - Respiratory Respiratory effort: normal Respiratory: bilateral: CTA - Cardiovascular Heart rate: 77 Rhythm: regular Heart Sounds: Present: S1 & S2 - Extremities Extremities: no ischemia Peripheral Pulses: within normal limits - Abdominal General gastrointestinal: Present: soft, non-tender Female genitourinary: Present: deferred - Rectal Rectal Exam: deferred - Integumentary Integumentary: Present: clear, warm, dry - Musculoskeletal Musculoskeletal: strength equal bilaterally - Psychiatric Psychiatric: appropriate mood/affect - Neurologic Neurologic: CNII-XII intact - Allied Health Allied health notes reviewed: nursing Results - Labs CBC & Chem 7: 11/10/16 01:54 11/10/16 01:54 Labs: Laboratory Last Values WBC 5.6 K/mm3 (4.5-11.0) 11/10/16 01:54 RBC 4.63 M/mm3 (3.65-5.03) 11/10/16 01:54 Hgb 12.3 gm/dl (10.1-14.3) 11/10/16 01:54 Hct 37.2 % (30.3-42.9) 11/10/16 01:54 MCV 80 fl (79-97) 11/10/16 01:54 MCH 27 pg (28-32) L 11/10/16 01:54 MCHC 33 % (30-34) 11/10/16 01:54 RDW 16.0 % (13.2-15.2) H 11/10/16 01:54 Plt Count 155 K/mm3 (140-440) 11/10/16 01:54 Lymph % (Auto) 35.7 % (13.4-35.0) H 11/10/16 01:54 [place] % (Auto) 5.7 % (0.0-7.3) 11/10/16 01:54 Eos % (Auto) 2.1 % (0.0-4.3) 11/10/16 01:54 Baso % (Auto) 0.6 % (0.0-1.8) 11/10/16 01:54 Lymph # 2.0 K/mm3 (1.2-5.4) 11/10/16 01:54 [place] # 0.3 K/mm3 (0.0-0.8) 11/10/16 01:54 Eos # 0.1 K/mm3 (0.0-0.4) 11/10/16 01:54 Baso # 0.0 K/mm3 (0.0-0.1) 11/10/16 01:54 Seg Neutrophils % 55.9 % (40.0-70.0) 11/10/16 01:54 Seg Neutrophils # 3.1 K/mm3 (1.8-7.7) 11/10/16 01:54 Sodium 142 mmol/L (137-145) 11/10/16 01:54 Potassium 3.8 mmol/L (3.6-5.0) 11/10/16 01:54 Chloride 103.1 mmol/L (98-107) 11/10/16 01:54 Carbon Dioxide 25 mmol/L (22-30) 11/10/16 01:54 Anion Gap 18 mmol/L 11/10/16 01:54 BUN 22 mg/dL (7-17) H 11/10/16 01:54 Creatinine 0.8 mg/dL (0.7-1.2) 11/10/16 01:54 Estimated GFR > 60 ml/min 11/10/16 01:54 BUN/Creatinine Ratio 27.50 % 11/10/16 01:54 Glucose 135 mg/dL (65-100) H 11/10/16 01:54 Calcium 9.0 mg/dL (8.4-10.2) 11/10/16 01:54 Total Bilirubin 0.20 mg/dL (0.1-1.2) 11/10/16 01:54 AST 14 units/L (5-40) 11/10/16 01:54 ALT 15 units/L (7-56) 11/10/16 01:54 Alkaline Phosphatase 61 units/L (35-129) 11/10/16 01:54 Total Protein 7.1 g/dL (6.3-8.2) 11/10/16 01:54 Albumin 4.0 g/dL (3.9-5) 11/10/16 01:54 Albumin/Globulin Ratio 1.3 % 11/10/16 01:54 Lipase 58 units/L (13-60) 11/10/16 01:54 Assessment and Plan Assessment and plan: Patient is a 50-year-old Afro-[place] female with past medical history of hypertension COPD, GERD, HIV, pancreatitis, hyperlipidemia,gallstones, diverticulitis, fibromyalgia and chronic pain who presents emergency Department , with complaint of a 2 day history of pain to the upper abdomen, upper mid flank and with some radiation towards the back. ASSESSMENT/PLAN Biliary Collic Abdominal pain Nothing by mouth Antiemetic and pain medications ordered Normal HIDA scan Surgery consult GI consulted COPD Nebulizers/Inhalers Oxygen supplement Pulmonary consult. Supportive care Hypertension Resume home antihypertensive medication Closely monitor blood pressure Hyperlipidemia Resume home antilipid medications HIV Resume antivirals medications GERD Started on IV Protonix DVT prophylaxis Lovenox Advance Directives: Yes VTE prophylaxis?: Chemical Contraindication Mechanical VTE Prophylaxis: Treatment Not Indicated Plan of care discussed with patient/family: Yes <HAILEY ZAMORA R - Last Filed: 11/11/16 09:36> History of Present Illness Date of admission: 11/10/16 09:36 Medications and Allergies Active Meds: Active Medications Acetaminophen (Tylenol) 650 mg PO Q4H PRN PRN Reason: Pain MILD(1-3)/Fever >100.5/HOLDER Last Admin: 11/10/16 10:26 Dose: 650 mg Albuterol (Proventil) 2.5 mg IH Q4HRT PRN PRN Reason: Shortness Of Breath Amlodipine Besylate (Norvasc) 10 mg PO DAILY [facility] Last Admin: 11/10/16 10:41 Dose: 10 mg Atenolol (Tenormin) 100 mg PO QDAY [facility] Last Admin: 11/10/16 12:54 Dose: 100 mg Benzonatate (Tessalon Perles) 100 mg PO Q8HR [facility] Last Admin: 11/11/16 05:35 Dose: 100 mg Bisacodyl (Dulcolax) 10 mg [place] QDAY PRN PRN Reason: Constipation unrelieved by MOM Clonidine HCl (Catapres) 0.2 mg PO BID [facility] Last Admin: 11/10/16 23:03 Dose: 0.2 mg Dicyclomine HCl (Bentyl) 20 mg PO QID [facility] Last Admin: 11/10/16 23:03 Dose: 20 mg Gabapentin (Neurontin) 300 mg PO TID [facility] Last Admin: 11/10/16 21:32 Dose: 300 mg Dextrose/Sodium Chloride (D5/0.45ns) 1,000 mls @ 100 mls/hr IV DIRECT [facility] Influenza Virus Vaccine Quadrival (Fluarix Quad 0535-3036(36 Mos+)) 0.5 ml IM .ONCE ONE Stop: 11/11/16 12:01 Metoclopramide HCl (Reglan) 10 mg PO TID PRN PRN Reason: Nausea Minoxidil (Loniten) 10 mg PO BID [facility] Last Admin: 11/10/16 21:33 Dose: 10 mg Miscellaneous Medication (Emtricitab/Rilpiviri/Tenof Ala [Odefsey Tablet]) 1 each PO DAILY [facility] Morphine Sulfate (Morphine) 2 mg IV Q4H PRN PRN Reason: Pain, Moderate (4-6) Last Admin: 11/11/16 05:34 Dose: 2 mg Naproxen (Naprosyn) 375 mg PO Q8H PRN PRN Reason: Pain, Mild (1-3) Pantoprazole Sodium (Protonix) 20 mg PO QDAY [facility] Last Admin: 11/10/16 13:00 Dose: 20 mg Pneumococcal Polyvalent Vaccine (Pneumovax 23) 0.5 ml IM .ONCE ONE Stop: 11/11/16 12:01 Promethazine HCl (Phenergan) 25 mg PO Q8HR PRN PRN Reason: Nausea Simvastatin (Zocor) 20 mg PO QHS [facility] Last Admin: 11/10/16 21:33 Dose: 20 mg Sucralfate (Carafate) 1 gm PO QID PRN PRN Reason: Indigestion Zolpidem Tartrate (Ambien) 5 mg PO QHS PRN PRN Reason: Sleep Last Admin: 11/10/16 21:33 Dose: 5 mg Exam - Constitutional Vitals: Temp Pulse Resp BP Pulse Ox 97.7 F 61 18 112/60 91 11/11/16 00:11 11/11/16 00:11 11/11/16 00:11 11/11/16 00:11 11/11/16 00:11 Results - Labs CBC & Chem 7: 11/11/16 04:39 11/11/16 04:39 Labs: Laboratory Last Values WBC 4.9 K/mm3 (4.5-11.0) 11/11/16 04:39 RBC 4.40 M/mm3 (3.65-5.03) 11/11/16 04:39 Hgb 11.6 gm/dl (10.1-14.3) 11/11/16 04:39 Hct 35.7 % (30.3-42.9) 11/11/16 04:39 MCV 81 fl (79-97) 11/11/16 04:39 MCH 26 pg (28-32) L 11/11/16 04:39 MCHC 32 % (30-34) 11/11/16 04:39 RDW 16.4 % (13.2-15.2) H 11/11/16 04:39 Plt Count 137 K/mm3 (140-440) L 11/11/16 04:39 Lymph % (Auto) 38.1 % (13.4-35.0) H 11/11/16 04:39 [place] % (Auto) 6.1 % (0.0-7.3) 11/11/16 04:39 Eos % (Auto) 2.1 % (0.0-4.3) 11/11/16 04:39 Baso % (Auto) 0.7 % (0.0-1.8) 11/11/16 04:39 Lymph # 1.9 K/mm3 (1.2-5.4) 11/11/16 04:39 [place] # 0.3 K/mm3 (0.0-0.8) 11/11/16 04:39 Eos # 0.1 K/mm3 (0.0-0.4) 11/11/16 04:39 Baso # 0.0 K/mm3 (0.0-0.1) 11/11/16 04:39 Seg Neutrophils % 53.0 % (40.0-70.0) 11/11/16 04:39 Seg Neutrophils # 2.6 K/mm3 (1.8-7.7) 11/11/16 04:39 Sodium 140 mmol/L (137-145) 11/11/16 04:39 Potassium 3.7 mmol/L (3.6-5.0) 11/11/16 04:39 Chloride 101.9 mmol/L (98-107) 11/11/16 04:39 Carbon Dioxide 26 mmol/L (22-30) 11/11/16 04:39 Anion Gap 16 mmol/L 11/11/16 04:39 BUN 13 mg/dL (7-17) 11/11/16 04:39 Creatinine 0.5 mg/dL (0.7-1.2) L 11/11/16 04:39 Estimated GFR > 60 ml/min 11/11/16 04:39 BUN/Creatinine Ratio 26.00 % 11/11/16 04:39 Glucose 132 mg/dL (65-100) H 11/11/16 04:39 Calcium 8.4 mg/dL (8.4-10.2) 11/11/16 04:39 Total Bilirubin 0.20 mg/dL (0.1-1.2) 11/10/16 01:54 AST 14 units/L (5-40) 11/10/16 01:54 ALT 15 units/L (7-56) 11/10/16 01:54 Alkaline Phosphatase 61 units/L (35-129) 11/10/16 01:54 Total Protein 7.1 g/dL (6.3-8.2) 11/10/16 01:54 Albumin 4.0 g/dL (3.9-5) 11/10/16 01:54 Albumin/Globulin Ratio 1.3 % 11/10/16 01:54 Lipase 58 units/L (13-60) 11/10/16 01:54 Assessment and Plan Assessment and plan: I saw and evaluated the patient. I agree with the findings and the plan of care as documented in the Nurse Practitioner's~note, with the following corrections and additions.
[2016-11-10] MEDS ORDERED: NON-FORMULARY (Omeprazole Magnesium [Prilosec Otc] 20 MG) PO SCH (10:00)
[2016-11-10] MEDS ORDERED: DULCOLAX PR PRN (10:00)
[2016-11-10] MEDS ORDERED: NON-FORMULARY (Atenolol [Tenormin] 100 MG) PO SCH (10:00)
[2016-11-10] MEDS ORDERED: TYLENOL PO PRN (10:00)
--- NOTE | 2016-11-10 10:11 | Consultation ---
History of Present Illness Consult date: 11/10/16 Chief complaint: Abdominal pain - History of present illness History of present illness: Attempted to see patient at 10 am but in HIDA scan. Will see when back in room. 50-year-old female with an extensive past medical history including hypertension , obesity, sleep apnea, GERD presents to the emergency room with complaints of epigastric and right upper quadrant abdominal pain. It is sharp in nature and sometimes radiates to her flank. She states that her current symptoms have been constant for 3 days. The symptoms originally started several months ago and she states the pain was intermittent. She does have associated nausea at times. No fevers or chills. No chest pain or shortness of breath. The symptoms are not exacerbated by certain foods. She has been seen in the emergency department many times for abdominal symptoms and had a work up including ultrasound of RUQ which showed a small gallstone. Past History Past Medical History: COPD, GERD, HIV/AIDS, hypertension, other (obesity, fibromyalgia, depression/anxiety) Past Surgical History: hysterectomy, tonsillectomy Social history: no significant social history. denies: smoking, alcohol abuse, IV drug use Family history: no significant family history Medications and Allergies Allergies Allergy/AdvReac Type Severity Reaction Status Date / Time codeine Allergy Angioedema Verified 10/26/16 18:10 lisinopril Allergy Angioedema Verified 10/26/16 18:10 Home Medications Medication Instructions Recorded Confirmed Last Taken Type amLODIPine [Norvasc] 10 mg PO DAILY 12/21/12 11/10/16 11/09/16 History cloNIDine [Catapres] 0.2 mg PO BID 12/21/12 11/10/16 11/09/16 History Atenolol [Tenormin] 100 mg PO DAILY 04/04/15 11/10/16 11/09/16 History Zolpidem [Ambien] 5 mg PO QHS PRN 09/27/15 11/10/16 11/09/16 History Omeprazole Magnesium [PriLOSEC Otc] 20 mg PO QDAY #30 tablet. 08/30/1611/09/16 Rx ALPRAZolam [Xanax TAB] 1 mg PO BID PRN 11/10/16 11/10/16 11/09/16 History Albuterol Sulfate [Ventolin HFA] 1 puff IH BID PRN 11/10/16 11/10/16 Unknown History Citalopram [Celexa] 40 mg PO DAILY 11/10/16 11/10/16 11/09/16 History Emtricitab/Rilpiviri/Tenof Ala 1 each PO DAILY 11/10/16 11/10/16 11/09/16 History [Odefsey Tablet] Furosemide [Lasix TAB] 40 mg PO QDAY 11/10/16 11/10/16 Unknown History Gabapentin [Neurontin] 300 mg PO TID 11/10/16 11/10/16 Unknown History Minoxidil [Loniten] 5 mg PO BID 11/10/16 11/10/16 11/09/16 History Naproxen Sodium [Aleve TAB] 220 mg PO Q8H PRN 11/10/16 11/10/16 11/09/16 History Promethazine [Phenergan TAB] 25 mg PO Q8HR PRN 11/10/16 11/10/16 Unknown History Simvastatin [Zocor TAB] 20 mg PO QHS 11/10/16 11/10/16 Unknown History Sucralfate [Carafate] 10 ml PO PRN 11/10/16 11/10/16 Unknown History Sulfamethoxazole/Trimethoprim 1 each PO DAILY 11/10/16 11/10/16 Unknown History [Bactrim DS TAB] Active Meds: Active Medications Acetaminophen (Tylenol) 650 mg PO Q4H PRN PRN Reason: Pain MILD(1-3)/Fever >100.5/HOLDER Amlodipine Besylate (Norvasc) 10 mg PO DAILY [facility] Benzonatate (Tessalon Perles) 100 mg PO Q8HR [facility] Bisacodyl (Dulcolax) 10 mg [place] QDAY PRN PRN Reason: Constipation unrelieved by MOM Clonidine HCl (Catapres) 0.2 mg PO BID [facility] Dicyclomine HCl (Bentyl) 20 mg PO QID [facility] Dextrose/Sodium Chloride (D5/0.45ns) 1,000 mls @ 100 mls/hr IV DIRECT [facility] Metoclopramide HCl (Reglan) 10 mg PO TID PRN PRN Reason: Nausea Minoxidil (Loniten) 10 mg PO BID [facility] Miscellaneous Medication (Atenolol [Tenormin]) 100 mg PO DAILY [facility] Miscellaneous Medication (Omeprazole Magnesium [Prilosec Otc]) 20 mg PO QDAY [facility] Morphine Sulfate (Morphine) 2 mg IV Q4H PRN PRN Reason: Pain, Moderate (4-6) Zolpidem Tartrate (Ambien) 5 mg PO QHS PRN PRN Reason: Sleep Review of Systems All systems: negative (see HPI) Exam Vital Signs Temp Pulse Resp BP Pulse Ox 98.3 F 108 H 20 163/88 99 11/10/16 00:22 11/10/16 00:22 11/10/16 00:22 11/10/16 00:22 11/10/16 00:22 Narrative exam: General: Awake alert and oriented 3. No apparent distress CV: S1-S2 present Resp: No audible wheezes Abd: soft, ND, obese. mild TTP in epigastric area. No r/r/g. well healed surgical scars Ext: no c/c/e Results - Labs 11/10/16 01:54 11/10/16 01:54 Abnormal lab results 11/10/16 11/10/16 Range/Units 01:54 01:54 MCH 27 L (28-32) pg RDW 16.0 H (13.2-15.2) % Lymph % (Auto) 35.7 H (13.4-35.0) % BUN 22 H (7-17) mg/dL Glucose 135 H (65-100) mg/dL Diabetes panel 11/10/16 Range/Units 01:54 Sodium 142 (137-145) mmol/L Potassium 3.8 (3.6-5.0) mmol/L Chloride 103.1 (98-107) mmol/L Carbon Dioxide 25 (22-30) mmol/L BUN 22 H (7-17) mg/dL Creatinine 0.8 (0.7-1.2) mg/dL Glucose 135 H (65-100) mg/dL Calcium 9.0 (8.4-10.2) mg/dL AST 14 (5-40) units/L ALT 15 (7-56) units/L Alkaline Phosphatase 61 (35-129) units/L Total Protein 7.1 (6.3-8.2) g/dL Albumin 4.0 (3.9-5) g/dL Calcium panel 11/10/16 Range/Units 01:54 Calcium 9.0 (8.4-10.2) mg/dL Albumin 4.0 (3.9-5) g/dL Pituitary panel 11/10/16 Range/Units 01:54 Sodium 142 (137-145) mmol/L Potassium 3.8 (3.6-5.0) mmol/L Chloride 103.1 (98-107) mmol/L Carbon Dioxide 25 (22-30) mmol/L BUN 22 H (7-17) mg/dL Creatinine 0.8 (0.7-1.2) mg/dL Glucose 135 H (65-100) mg/dL Calcium 9.0 (8.4-10.2) mg/dL Adrenal panel 11/10/16 Range/Units 01:54 Sodium 142 (137-145) mmol/L Potassium 3.8 (3.6-5.0) mmol/L Chloride 103.1 (98-107) mmol/L Carbon Dioxide 25 (22-30) mmol/L BUN 22 H (7-17) mg/dL Creatinine 0.8 (0.7-1.2) mg/dL Glucose 135 H (65-100) mg/dL Calcium 9.0 (8.4-10.2) mg/dL Total Bilirubin 0.20 (0.1-1.2) mg/dL AST 14 (5-40) units/L ALT 15 (7-56) units/L Alkaline Phosphatase 61 (35-129) units/L Total Protein 7.1 (6.3-8.2) g/dL Albumin 4.0 (3.9-5) g/dL - Imaging US - abdomen: report reviewed (10/27/16 - cholelithiasis), image reviewed Additional studies: HIDA scan with EF: EF 51%, normal study Assessment and Plan 50 y/o F with abdominal pain, cholelithiasis, GERD 1. Normal HIDA scan and EF 2. NPO except meds 3. IVF 4. DVT ppx 5. recommend GI evaluation 6. prn pain control
[2016-11-10] MEDS ORDERED: REGLAN PO PRN (10:30)
[2016-11-10] MEDS ORDERED: NORVASC ONE (10:41)
[2016-11-10] MEDS: NORVASC PO SCH (10:41)
[2016-11-10] MEDS ORDERED: KINEVAC IV ONE ×2 (11:03)
[2016-11-10] MEDS ORDERED: WATER FOR INJ (PF) 10 ML ONE (11:03)
[2016-11-10] MEDS ORDERED: WATER FOR INJ (PF) IV ONE (11:04)
--- NOTE | 2016-11-10 12:03 | Nuclear Medicine Report ---
Hepatobiliary scan with Kinevac: Abdominal pain. Following injection of radionuclide initial images demonstrated an unremarkable liver on the anterior images. The gallbladder visualized quickly however it took 3 hours before activity was identified in the bowel. Kinevac was then administered according to our protocol reproducing the patient's usual symptoms. A peak ejection contraction of 51% was achieved at 26 minutes however the primary contraction occurred between 7 and 11 minutes after injection. Impressions: Normal biliary imaging with 51% gallbladder contraction.
[2016-11-10] MEDS: CATAPRES PO SCH ×2 (12:52→23:03)
[2016-11-10] MEDS: TENORMIN PO SCH (12:54)
[2016-11-10] MEDS: PROTONIX PO SCH (13:00)
[2016-11-10] MEDS: TESSALON PERLES PO SCH ×2 (13:00→21:35)
[2016-11-10] MEDS: BENTYL PO SCH ×4 (13:00→23:03)
[2016-11-10] MEDS: MORPHINE IV PRN ×3 (13:01→21:35)
[2016-11-10] MEDS ORDERED: PROAIR IH PRN (14:56)
[2016-11-10] MEDS ORDERED: NAPROXEN SODIUM 220 MG PO PRN (14:56)
[2016-11-10] MEDS ORDERED: CARAFATE PO PRN (15:00)
[2016-11-10] MEDS ORDERED: NAPROSYN PO PRN (15:14)
[2016-11-10] MEDS ORDERED: PROVENTIL IH PRN (15:19)
[2016-11-10] MEDS: LONITEN PO SCH ×2 (21:28→21:33)
[2016-11-10] MEDS: NEURONTIN PO SCH (21:32)
[2016-11-10] MEDS: AMBIEN PO PRN (21:33)
[2016-11-10] MEDS: ZOCOR PO SCH (21:33)
[2016-11-10] MEDS ORDERED: XANAX PO ONE (23:50)
[2016-11-11] MEDS: MORPHINE IV PRN ×6 (02:08→23:29)
[2016-11-11] MEDS: TESSALON PERLES PO SCH ×3 (05:35→21:06)
[2016-11-11 05:42] LABS: Basophils % (Auto) 0.7 % (0.0-1.8); Eosinophils % (Auto) 2.1 % (0.0-4.3); Hematocrit 35.7 % (30.3-42.9); Hemoglobin 11.6 gm/dl (10.1-14.3); Mean Corpuscular HGB Conc 32 % (30-34); Mean Corpuscular Hemoglobin 26 pg (28-32); Mean Corpuscular Volume 81 fl (79-97); Platelet Count 137 K/mm3 (140-440); Red Cell Distribution Width 16.4 % (13.2-15.2); White Blood Count 4.9 K/mm3 (4.5-11.0)
[2016-11-11 05:48] LABS: Anion Gap 16 mmol/L; Blood Urea Nitrogen 13 mg/dL (7-17); Calcium 8.4 mg/dL (8.4-10.2); Carbon Dioxide 26 mmol/L (22-30); Chloride 101.9 mmol/L (98-107); Glucose 132 mg/dL (65-100); Potassium 3.7 mmol/L (3.6-5.0); Sodium 140 mmol/L (137-145)
[2016-11-11] MEDS: D5/0.45NS 1,000 ML IV SCH ×2 (08:09→18:18)
[2016-11-11] MEDS: NEURONTIN PO SCH ×3 (08:20→20:55)
--- NOTE | 2016-11-11 09:09 | Progress Note ---
Assessment and Plan 50 yo F with abdominal pain, hx of GERD and cholelithiasis, HIV, COPD 1. GI input appreciated 2. clear liquids -> adv diet as tolerated 3. PPI 4. ok to dc from surgery standpoint if tolerates diet Subjective Date of service: 11/11/16 Narrative: Pt seen and examined. No overnight events. Tolerated clear liquids yesterday evening. Mild nausea, no vomiting. Pain is controlled. Objective Vital Signs - 12hr 11/10/16 11/10/16 11/11/16 23:01 23:03 00:05 Temperature Pulse Rate 90 Respiratory 16 Rate Blood Pressure 133/78 133/78 O2 Sat by Pulse 97 Oximetry 11/11/16 00:11 Temperature 97.7 F Pulse Rate 61 Respiratory 18 Rate Blood Pressure 112/60 O2 Sat by Pulse 91 Oximetry - General physical appearance Narrative Exam: Gen: AAOx3. NAD CV: S1, S2+ Resp: No audible wheezes Abd: soft, ND, mild epigastric and RUQ TTP. no r/r/g Ext: No c/c/e - Labs 11/11/16 04:39 11/11/16 04:39 Diabetes panel 11/11/16 Range/Units 04:39 Sodium 140 (137-145) mmol/L Potassium 3.7 (3.6-5.0) mmol/L Chloride 101.9 (98-107) mmol/L Carbon Dioxide 26 (22-30) mmol/L BUN 13 (7-17) mg/dL Creatinine 0.5 L (0.7-1.2) mg/dL Glucose 132 H (65-100) mg/dL Calcium 8.4 (8.4-10.2) mg/dL Calcium panel 11/11/16 Range/Units 04:39 Calcium 8.4 (8.4-10.2) mg/dL Pituitary panel 11/11/16 Range/Units 04:39 Sodium 140 (137-145) mmol/L Potassium 3.7 (3.6-5.0) mmol/L Chloride 101.9 (98-107) mmol/L Carbon Dioxide 26 (22-30) mmol/L BUN 13 (7-17) mg/dL Creatinine 0.5 L (0.7-1.2) mg/dL Glucose 132 H (65-100) mg/dL Calcium 8.4 (8.4-10.2) mg/dL Adrenal panel 11/11/16 Range/Units 04:39 Sodium 140 (137-145) mmol/L Potassium 3.7 (3.6-5.0) mmol/L Chloride 101.9 (98-107) mmol/L Carbon Dioxide 26 (22-30) mmol/L BUN 13 (7-17) mg/dL Creatinine 0.5 L (0.7-1.2) mg/dL Glucose 132 H (65-100) mg/dL Calcium 8.4 (8.4-10.2) mg/dL
[2016-11-11] MEDS: PROTONIX PO SCH (09:13)
[2016-11-11] MEDS: TENORMIN PO SCH (09:14)
[2016-11-11] MEDS: NORVASC PO SCH (09:14)
[2016-11-11] MEDS: CATAPRES PO SCH ×2 (09:16→21:07)
[2016-11-11] MEDS: LONITEN PO SCH ×2 (09:16→21:06)
[2016-11-11] MEDS: NON-FORMULARY (Emtricitab/Rilpiviri/Tenof Ala [Odefsey Tablet] 1 EACH) PO SCH (09:17)
--- NOTE | 2016-11-11 09:23 | Gastroenterology Consultation ---
History of Present Illness - Reason for Consult Consult date: 11/11/16 biliary colic Requesting physician: DEIRDRE CABRERA - History of Present Illness Patient is a 50 y/o female with history of morbid obesity, HTN, COPD, GERD, HIV , pancreatitis, HIV, gallstones, fibromyalgia and chronic pain who presents for c/o right mid flank pain, epigastric pain that radiates to RUQ and N/V. She has had multiple visits for similar symptoms in the past. Abd U/S on 10/27/16 revealed gallstones. HIDA scan yesterday showed EF 51%. LFTs are normal. This morning pt resting in bed without acute distress. She reports symptoms have been present for several years. Admits epigastric, RUQ, and flank pain are worsened by movement and activity. Reports nausea has been intermittent for years but is not correlated with eating. She also reports having an EGD in 2013 that revealed peptic ulcer. No NSAID use. Denies fever, wt loss, jaundice, pruritis, melena, diarrhea, constipation, or hematochezia. Past History Past Medical History: COPD (COPD, GERD, HIV, pancreatitis, gallstones, diverticulitis, fibromyalgia), GERD, HIV/AIDS ( gallstones, diverticulitis, fibromyalgia), hypertension, other (PUD, morbid obesity, fibromyalgia, chronic pain, HIV, gallstones) Past Surgical History: No surgical history Social history: lives with family. denies: smoking, alcohol abuse Family history: CAD, hypertension Medications and Allergies Allergies Allergy/AdvReac Type Severity Reaction Status Date / Time codeine Allergy Angioedema Verified 10/26/16 18:10 lisinopril Allergy Angioedema Verified 10/26/16 18:10 Home Medications Medication Instructions Recorded Confirmed Last Taken Type amLODIPine [Norvasc] 10 mg PO DAILY 12/21/12 11/10/16 11/09/16 History cloNIDine [Catapres] 0.2 mg PO BID 12/21/12 11/10/16 11/09/16 History Atenolol [Tenormin] 100 mg PO DAILY 04/04/15 11/10/16 11/09/16 History Zolpidem [Ambien] 5 mg PO QHS PRN 09/27/15 11/10/16 11/09/16 History Omeprazole Magnesium [PriLOSEC Otc] 20 mg PO QDAY #30 tablet. 08/30/1611/09/16 Rx ALPRAZolam [Xanax TAB] 1 mg PO BID PRN 11/10/16 11/10/16 11/09/16 History Albuterol Sulfate [Ventolin HFA] 1 puff IH BID PRN 11/10/16 11/10/16 Unknown History Citalopram [Celexa] 40 mg PO DAILY 11/10/16 11/10/16 11/09/16 History Emtricitab/Rilpiviri/Tenof Ala 1 each PO DAILY 11/10/16 11/10/16 11/09/16 History [Odefsey Tablet] Furosemide [Lasix TAB] 40 mg PO QDAY 11/10/16 11/10/16 Unknown History Gabapentin [Neurontin] 300 mg PO TID 11/10/16 11/10/16 Unknown History Minoxidil [Loniten] 5 mg PO BID 11/10/16 11/10/16 11/09/16 History Naproxen Sodium [Aleve TAB] 220 mg PO Q8H PRN 11/10/16 11/10/16 11/09/16 History Promethazine [Phenergan TAB] 25 mg PO Q8HR PRN 11/10/16 11/10/16 Unknown History Simvastatin [Zocor TAB] 20 mg PO QHS 11/10/16 11/10/16 Unknown History Sucralfate [Carafate] 10 ml PO PRN 11/10/16 11/10/16 Unknown History Sulfamethoxazole/Trimethoprim 1 each PO DAILY 11/10/16 11/10/16 Unknown History [Bactrim DS TAB] Active Meds: Active Medications Acetaminophen (Tylenol) 650 mg PO Q4H PRN PRN Reason: Pain MILD(1-3)/Fever >100.5/HOLDER Last Admin: 11/10/16 10:26 Dose: 650 mg Albuterol (Proventil) 2.5 mg IH Q4HRT PRN PRN Reason: Shortness Of Breath Amlodipine Besylate (Norvasc) 10 mg PO DAILY [facility] Last Admin: 11/10/16 10:41 Dose: 10 mg Atenolol (Tenormin) 100 mg PO QDAY [facility] Last Admin: 11/10/16 12:54 Dose: 100 mg Benzonatate (Tessalon Perles) 100 mg PO Q8HR [facility] Last Admin: 11/11/16 05:35 Dose: 100 mg Bisacodyl (Dulcolax) 10 mg MI QDAY PRN PRN Reason: Constipation unrelieved by MOM Clonidine HCl (Catapres) 0.2 mg PO BID [facility] Last Admin: 11/10/16 23:03 Dose: 0.2 mg Dicyclomine HCl (Bentyl) 20 mg PO QID [facility] Last Admin: 11/10/16 23:03 Dose: 20 mg Gabapentin (Neurontin) 300 mg PO TID [facility] Last Admin: 11/11/16 08:20 Dose: 300 mg Dextrose/Sodium Chloride (D5/0.45ns) 1,000 mls @ 100 mls/hr IV DIRECT [facility] Last Admin: 11/11/16 08:09 Dose: 100 mls/hr Influenza Virus Vaccine Quadrival (Fluarix Quad [id number](36 Mos+)) 0.5 ml IM .ONCE ONE Stop: 11/11/16 12:01 Metoclopramide HCl (Reglan) 10 mg PO TID PRN PRN Reason: Nausea Minoxidil (Loniten) 10 mg PO BID [facility] Last Admin: 11/10/16 21:33 Dose: 10 mg Miscellaneous Medication (Emtricitab/Rilpiviri/Tenof Ala [Odefsey Tablet]) 1 each PO DAILY [facility] Morphine Sulfate (Morphine) 2 mg IV Q4H PRN PRN Reason: Pain, Moderate (4-6) Last Admin: 11/11/16 05:34 Dose: 2 mg Naproxen (Naprosyn) 375 mg PO Q8H PRN PRN Reason: Pain, Mild (1-3) Pantoprazole Sodium (Protonix) 20 mg PO QDAY [facility] Last Admin: 11/10/16 13:00 Dose: 20 mg Pneumococcal Polyvalent Vaccine (Pneumovax 23) 0.5 ml IM .ONCE ONE Stop: 11/11/16 12:01 Promethazine HCl (Phenergan) 25 mg PO Q8HR PRN PRN Reason: Nausea Simvastatin (Zocor) 20 mg PO QHS [facility] Last Admin: 11/10/16 21:33 Dose: 20 mg Sucralfate (Carafate) 1 gm PO QID PRN PRN Reason: Indigestion Zolpidem Tartrate (Ambien) 5 mg PO QHS PRN PRN Reason: Sleep Last Admin: 11/10/16 21:33 Dose: 5 mg Review of Systems - Review of Systems All systems: negative Gastrointestinal: abdominal pain (epigastric and RUQ), nausea Musculoskeletal: other (right mid flank pain) Exam - Constitutional Vital Signs: Temp Pulse Resp BP Pulse Ox 97.7 F 61 18 112/60 91 11/11/16 00:11 11/11/16 00:11 11/11/16 00:11 11/11/16 00:11 11/11/16 00:11 General appearance: no acute distress, well-nourished, obese (morbid obesity) - EENT Eyes: PERRL, EOM intact ENT: hearing intact - Neck Neck: supple, normal ROM - Respiratory Respiratory: bilateral: CTA (anterior) - Cardiovascular Rhythm: regular Heart Sounds: Present: S1 & S2 Extremities: No edema - Gastrointestinal General gastrointestinal: Present: soft, non-tender, non-distended, normal bowel sounds - Integumentary Integumentary: Present: warm, dry - Neurologic Neurological: alert and oriented x3 - Labs CBC & Chem 7: 11/11/16 04:39 11/11/16 04:39 Lab Results: Laboratory Results - last 24 hr 11/11/16 11/11/16 04:39 04:39 WBC 4.9 RBC 4.40 Hgb 11.6 Hct 35.7 MCV 81 MCH 26 L MCHC 32 RDW 16.4 H Plt Count 137 L Lymph % (Auto) 38.1 H [place] % (Auto) 6.1 Eos % (Auto) 2.1 Baso % (Auto) 0.7 Lymph # 1.9 [place] # 0.3 Eos # 0.1 Baso # 0.0 Seg Neutrophils % 53.0 Seg Neutrophils # 2.6 Sodium 140 Potassium 3.7 Chloride 101.9 Carbon Dioxide 26 Anion Gap 16 BUN 13 Creatinine 0.5 L Estimated GFR > 60 BUN/Creatinine Ratio 26.00 Glucose 132 H Calcium 8.4 Assessment and Plan 1.abd pain 2.biliary colic -afebrile -WBC-WNL -LFTs-WNL -abd u/s 10/27/16 revealed gallstones -HIDA scan yesterday- normal results EF 51% -pt with a h/o chronic pain and nausea for several years including CP ( which has been worked up extensively in the past with negative results), epigastric pain, RUQ pain, and flank pain. Pain is worsened with movement and activity and not correlated with eating. Etiology most likely due to musculoskeletal pain. -Recommend diet, exercise, and wt loss -last EGD in 2013 revealed peptic ulcer per pt -recommend pt be on chronic daily PPI -No recommendations for an EGD at this time -clear liquid diet and advance as tolerated -if pt tolerating diet, may be d/c from GI standpoint -will sign off, please re-consult if needed
--- NOTE | 2016-11-11 09:40 | Progress Note ---
Assessment and Plan Assessment and plan: Abdominal pain Patient with history of peptic ulcer. Continue chronic daily PPI. GI with no recommendations for EGD at this time. Continue Bentyl and Reglan. Biliary Collic Abdominal pain Nothing by mouth Antiemetic and pain medications ordered Normal HIDA scan Surgery consulted GI consulted COPD Nebulizers/Inhalers Oxygen supplement Pulmonary consult. Supportive care Hypertension Resume home antihypertensive medication Closely monitor blood pressure Hyperlipidemia Continue Zocor. HIV Resume antivirals medications GERD Continue on IV Protonix DVT prophylaxis Lovenox History Interval history: No new issues overnight. Patient still complains of abdominal pain. Hospitalist Physical - Constitutional Vitals: Temp Pulse Resp BP Pulse Ox 97.7 F 61 18 112/60 91 11/11/16 00:11 11/11/16 09:16 11/11/16 00:11 11/11/16 09:16 11/11/16 00:11 General appearance: Present: no acute distress - EENT Eyes: Present: PERRL, EOM intact ENT: hearing intact, clear oral mucosa, dentition normal - Neck Neck: Present: supple, normal ROM - Respiratory Respiratory effort: normal Respiratory: bilateral: CTA - Cardiovascular Rhythm: regular Heart Sounds: Present: S1 & S2. Absent: gallop, rub - Extremities Extremities: no ischemia, No edema, Full ROM - Abdominal General gastrointestinal: soft, tender, non-distended, normal bowel sounds Localized gastrointestinal: tender: diffuse - Integumentary Integumentary: Present: clear, warm, dry - Neurologic Neurologic: CNII-XII intact, moves all extremities Results - Labs CBC & Chem 7: 11/11/16 04:39 11/11/16 04:39 Labs: Laboratory Last Values WBC 4.9 K/mm3 (4.5-11.0) 11/11/16 04:39 RBC 4.40 M/mm3 (3.65-5.03) 11/11/16 04:39 Hgb 11.6 gm/dl (10.1-14.3) 11/11/16 04:39 Hct 35.7 % (30.3-42.9) 11/11/16 04:39 MCV 81 fl (79-97) 11/11/16 04:39 MCH 26 pg (28-32) L 11/11/16 04:39 MCHC 32 % (30-34) 11/11/16 04:39 RDW 16.4 % (13.2-15.2) H 11/11/16 04:39 Plt Count 137 K/mm3 (140-440) L 11/11/16 04:39 Lymph % (Auto) 38.1 % (13.4-35.0) H 11/11/16 04:39 Real % (Auto) 6.1 % (0.0-7.3) 11/11/16 04:39 Eos % (Auto) 2.1 % (0.0-4.3) 11/11/16 04:39 Baso % (Auto) 0.7 % (0.0-1.8) 11/11/16 04:39 Lymph # 1.9 K/mm3 (1.2-5.4) 11/11/16 04:39 Real # 0.3 K/mm3 (0.0-0.8) 11/11/16 04:39 Eos # 0.1 K/mm3 (0.0-0.4) 11/11/16 04:39 Baso # 0.0 K/mm3 (0.0-0.1) 11/11/16 04:39 Seg Neutrophils % 53.0 % (40.0-70.0) 11/11/16 04:39 Seg Neutrophils # 2.6 K/mm3 (1.8-7.7) 11/11/16 04:39 Sodium 140 mmol/L (137-145) 11/11/16 04:39 Potassium 3.7 mmol/L (3.6-5.0) 11/11/16 04:39 Chloride 101.9 mmol/L (98-107) 11/11/16 04:39 Carbon Dioxide 26 mmol/L (22-30) 11/11/16 04:39 Anion Gap 16 mmol/L 11/11/16 04:39 BUN 13 mg/dL (7-17) 11/11/16 04:39 Creatinine 0.5 mg/dL (0.7-1.2) L 11/11/16 04:39 Estimated GFR > 60 ml/min 11/11/16 04:39 BUN/Creatinine Ratio 26.00 % 11/11/16 04:39 Glucose 132 mg/dL (65-100) H 11/11/16 04:39 Calcium 8.4 mg/dL (8.4-10.2) 11/11/16 04:39 Total Bilirubin 0.20 mg/dL (0.1-1.2) 11/10/16 01:54 AST 14 units/L (5-40) 11/10/16 01:54 ALT 15 units/L (7-56) 11/10/16 01:54 Alkaline Phosphatase 61 units/L (35-129) 11/10/16 01:54 Total Protein 7.1 g/dL (6.3-8.2) 11/10/16 01:54 Albumin 4.0 g/dL (3.9-5) 11/10/16 01:54 Albumin/Globulin Ratio 1.3 % 11/10/16 01:54 Lipase 58 units/L (13-60) 11/10/16 01:54
--- NOTE | 2016-11-11 09:49 | Progress Note ---
History Interval history: No new issues overnight. Patient still complains of abdominal pain. Hospitalist Physical - Constitutional Vitals: Temp Pulse Resp BP Pulse Ox 97.3 F L 64 18 123/61 100 11/11/16 09:46 11/11/16 09:46 11/11/16 09:46 11/11/16 09:46 11/11/16 09:46 General appearance: Present: no acute distress Results - Labs CBC & Chem 7: 11/11/16 04:39 11/11/16 04:39 Labs: Laboratory Last Values WBC 4.9 K/mm3 (4.5-11.0) 11/11/16 04:39 RBC 4.40 M/mm3 (3.65-5.03) 11/11/16 04:39 Hgb 11.6 gm/dl (10.1-14.3) 11/11/16 04:39 Hct 35.7 % (30.3-42.9) 11/11/16 04:39 MCV 81 fl (79-97) 11/11/16 04:39 MCH 26 pg (28-32) L 11/11/16 04:39 MCHC 32 % (30-34) 11/11/16 04:39 RDW 16.4 % (13.2-15.2) H 11/11/16 04:39 Plt Count 137 K/mm3 (140-440) L 11/11/16 04:39 Lymph % (Auto) 38.1 % (13.4-35.0) H 11/11/16 04:39 [place] % (Auto) 6.1 % (0.0-7.3) 11/11/16 04:39 Eos % (Auto) 2.1 % (0.0-4.3) 11/11/16 04:39 Baso % (Auto) 0.7 % (0.0-1.8) 11/11/16 04:39 Lymph # 1.9 K/mm3 (1.2-5.4) 11/11/16 04:39 [place] # 0.3 K/mm3 (0.0-0.8) 11/11/16 04:39 Eos # 0.1 K/mm3 (0.0-0.4) 11/11/16 04:39 Baso # 0.0 K/mm3 (0.0-0.1) 11/11/16 04:39 Seg Neutrophils % 53.0 % (40.0-70.0) 11/11/16 04:39 Seg Neutrophils # 2.6 K/mm3 (1.8-7.7) 11/11/16 04:39 Sodium 140 mmol/L (137-145) 11/11/16 04:39 Potassium 3.7 mmol/L (3.6-5.0) 11/11/16 04:39 Chloride 101.9 mmol/L (98-107) 11/11/16 04:39 Carbon Dioxide 26 mmol/L (22-30) 11/11/16 04:39 Anion Gap 16 mmol/L 11/11/16 04:39 BUN 13 mg/dL (7-17) 11/11/16 04:39 Creatinine 0.5 mg/dL (0.7-1.2) L 11/11/16 04:39 Estimated GFR > 60 ml/min 11/11/16 04:39 BUN/Creatinine Ratio 26.00 % 11/11/16 04:39 Glucose 132 mg/dL (65-100) H 11/11/16 04:39 Calcium 8.4 mg/dL (8.4-10.2) 11/11/16 04:39 Total Bilirubin 0.20 mg/dL (0.1-1.2) 11/10/16 01:54 AST 14 units/L (5-40) 11/10/16 01:54 ALT 15 units/L (7-56) 11/10/16 01:54 Alkaline Phosphatase 61 units/L (35-129) 11/10/16 01:54 Total Protein 7.1 g/dL (6.3-8.2) 11/10/16 01:54 Albumin 4.0 g/dL (3.9-5) 11/10/16 01:54 Albumin/Globulin Ratio 1.3 % 11/10/16 01:54 Lipase 58 units/L (13-60) 11/10/16 01:54
[2016-11-11] MEDS: BENTYL PO SCH ×4 (10:20→21:06)
[2016-11-11] MEDS ORDERED: PNEUMOVAX 23 IM ONE (12:00)
[2016-11-11] MEDS ORDERED: Fluarix Quad 2017-2018(36 MOS+) IM ONE (12:00)
[2016-11-11] MEDS ORDERED: XANAX PO PRN (18:12)
[2016-11-11] MEDS: PHENERGAN PO PRN (18:17)
[2016-11-11] MEDS: ZOCOR PO SCH (21:06)
[2016-11-11] MEDS: AMBIEN PO PRN (23:29)
[2016-11-12] MEDS: MORPHINE IV PRN ×2 (04:29→09:48)
[2016-11-12] MEDS: PHENERGAN PO PRN (04:29)
[2016-11-12] MEDS: D5/0.45NS 1,000 ML IV SCH (06:12)
[2016-11-12] MEDS: TESSALON PERLES PO SCH (06:14)
--- NOTE | 2016-11-12 07:35 | Discharge Summary ---
Providers - Providers Date of Admission: 11/10/16 09:36 Date of discharge: 11/12/16 Attending physician: HAILEY ZAMORA 11/10/16 09:40 Consult to Physician [CONS] Routine Consulting Provider: SHEILA ASTORGA Reason For Exam: biliary colic Place consult to:: Dr. 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 She has had multiple visits for similar symptoms in the past. Abd U/S on 10/27/16 revealed gallstones. HIDA scan was completed during this hospitalization on 11/10/16 and showed EF 51%. LFTs were normal. Patient was seen by GI and surgery consultation. She felt the patient has a history of chronic pain and nausea for several years and that the pain is worsened with movement and activity, not correlated with eating. Therefore, etiology most likely related to musculoskeletal pain. Recommendations were for diet, exercise and weight loss. Also, patient to be on chronic daily PPI. No recommendations for EGD. Patient's diet was advanced and she tolerated it well. Patient will be discharged home. Dedicated discharge time 31 minutes. Disposition: TO HOME OR SELFCARE Time spent for discharge: 31 - Discharge Diagnoses (1) Abdominal pain Status: Acute Qualifiers: Abdominal location: A (2) Biliary colic Status: Acute (3) Muscle spasm of back Status: Acute (4) Chronic pain Status: Chronic Qualifiers: Chronic pain type: chronic pain syndrome Qualified Code(s): G89.4 - Chronic pain syndrome (5) HIV disease Status: Chronic Core Measure Documentation - Palliative Care Palliative Care/ Comfort Measures: Not Applicable - Core Measures Any of the following diagnoses?: none Exam - Constitutional Vitals: Temp Pulse Resp BP Pulse Ox 98.0 F 69 20 105/49 99 11/11/16 23:50 11/11/16 23:50 11/12/16 00:06 11/11/16 23:50 11/11/16 23:50 General appearance: Present: no acute distress, well-nourished - EENT Eyes: Present: PERRL ENT: hearing intact, clear oral mucosa - Neck Neck: Present: supple, normal ROM - Respiratory Respiratory effort: normal Respiratory: bilateral: CTA - Cardiovascular Heart Sounds: Present: S1 & S2. Absent: rub, click - Extremities Extremities: pulses symmetrical, No edema Peripheral Pulses: within normal limits - Abdominal General gastrointestinal: Present: soft, non-tender, non-distended, normal bowel sounds Female genitourinary: Present: normal - Integumentary Integumentary: Present: clear, warm, dry - Musculoskeletal Musculoskeletal: gait normal, strength equal bilaterally - Psychiatric Psychiatric: appropriate mood/affect, intact judgment & insight - Neurologic Neurologic: CNII-XII intact, moves all extremities Plan Activity: no restrictions Weight Bearing Status: Full Weight Bearing Diet: regular Follow up with: PRIMARY CAREMD [Primary Care Provider] - 3-5 Days ANUP RAMIREZ MD [Staff Physician] - 7 Days Prescriptions: ALPRAZolam [Xanax TAB] 1 mg PO BID PRN #30 tablet PRN Reason: Anxiety amLODIPine [Norvasc] 10 mg PO DAILY #30 tablet cloNIDine [Catapres] 0.2 mg PO BID #60 tablet Dicyclomine [Bentyl] 20 mg PO QID #30 tablet Gabapentin [Neurontin] 300 mg PO TID #60 capsule Metoclopramide [Reglan TAB] 10 mg PO TID PRN #30 tablet PRN Reason: Nausea Minoxidil [Loniten] 5 mg PO BID #60 tablet Pantoprazole [Protonix TAB] 20 mg PO QDAY #30 tablet.
[2016-11-12] MEDS: NEURONTIN PO SCH (08:17)
[2016-11-12] MEDS: PROTONIX PO SCH (09:43)
[2016-11-12] MEDS: LONITEN PO SCH (09:52)
[2016-11-12] MEDS: BENTYL PO SCH (09:54)
[2016-11-12] MEDS: NON-FORMULARY (Emtricitab/Rilpiviri/Tenof Ala [Odefsey Tablet] 1 EACH) PO SCH (09:55)
[2016-11-12] MEDS: TENORMIN PO SCH (09:57)
[2016-11-12 09:58] VITALS: BP 104/48
[2016-11-12] MEDS: CATAPRES PO SCH (09:58)
[2016-11-12] MEDS: NORVASC PO SCH (09:58)
== END 2016-11-12 11:00 | disposition home or self-care (01) | DRG 555 ==
LOC: ED 00:10 → 3A 09:36
PROVIDERS: ADMIT Hospitalist; ATTEND Hospitalist
PROC: 3E0234Z Introduction of Serum, Toxoid and Vaccine into Muscle, Percutaneous Approach (ICD-10-PCS; principal; 2016-11-11)
DX: M79.1 Myalgia (principal); B20 Human immunodeficiency virus [HIV] disease; Z68.43 Body mass index [BMI] 50.0-59.9, adult; K80.50 Calculus of bile duct without cholangitis or cholecystitis without obstruction; E66.01 Morbid (severe) obesity due to excess calories; I10 Essential (primary) hypertension; J44.9 Chronic obstructive pulmonary disease, unspecified; K21.9 Gastro-esophageal reflux disease without esophagitis; G89.29 Other chronic pain; M62.830 Muscle spasm of back; E11.9 Type 2 diabetes mellitus without complications; M19.90 Unspecified osteoarthritis, unspecified site; F41.9 Anxiety disorder, unspecified; F32.9 Major depressive disorder, single episode, unspecified; E78.5 Hyperlipidemia, unspecified; Z23 Encounter for immunization; Z88.5 Allergy status to narcotic agent; Z90.710 Acquired absence of both cervix and uterus; Z82.49 Family history of ischemic heart disease and other diseases of the circulatory system
CPT/HCPCS: 36415; 78227; 80048; 80053; 83690; 85025; 90686; 90732; 94660; 96361; 96374; 96375; A9537; J2270; J2805; Q0169

== ENCOUNTER 2017-02-25 10:08 | Emergency (ER) | payer OTHER ==
[2017-02-25] MEDS ORDERED: CATAPRES PO ONE (13:27)
--- NOTE | 2017-02-25 13:48 | Emergency Department Report ---
HPI - General Chief Complaint: Upper Respiratory Infection Time Seen by Provider: 02/25/17 12:32 - HPI HPI: Patient is a 51-year-old female with a history of high blood pressure not controlled presents to ED complaining of right-sided ear ache, sore throat and headache 1 day. She states she started experiencing near a yesterday evening accompanied with sore throat. Patient also admits driving until oriented nonproductive cough that started last night. Patient states she recently lost insurance and has not been able to follow up with her primary care to get her blood pressure medications. Patient states she takes clonidine amlodipine and atenolol for her blood pressure. She denies fevers/chills/nausea/vomiting/shortness of breath/chest pain/ dizziness/blurred vision/dysuria or any other symptoms. ED Past Medical Hx - Past Medical History Hx Hypertension: Yes Hx Congestive Heart Failure: No Hx Diabetes: No Hx GERD: Yes Hx Arthritis: Yes Hx Seizures: No Hx Psychiatric Treatment: Yes (depression/anxiety) Hx Asthma: Yes Hx COPD: Yes Hx HIV: Yes (unknown CD4. Viral load undetectable) Additional medical history: Obesity. ulcers, pancreatitis. diverticulitis. ulcers GALL STONES. sleep apnea. glaucoma. fibromyalgia. chronic pain. gallstones - Surgical History Hx Coronary Stent: No (pt reports she doesn't have any coronary stents.) Additional Surgical History: hysterectomy. tonsillectomy - Social History Smoking Status: Never Smoker Substance Use Type: None - Medications Home Medications: Home Medications Medication Instructions Recorded Confirmed Last Taken Type Zolpidem [Ambien] 5 mg PO QHS PRN 09/27/15 11/10/16 11/09/16 History Omeprazole Magnesium [PriLOSEC Otc] 20 mg PO QDAY #30 tablet. 08/30/1611/09/16 Rx ALPRAZolam [Xanax TAB] 1 mg PO BID PRN 11/10/16 11/10/16 11/09/16 History Albuterol Sulfate [Ventolin HFA] 1 puff IH BID PRN 11/10/16 11/10/16 Unknown History Citalopram [Celexa] 40 mg PO DAILY 11/10/16 11/10/16 11/09/16 History Emtricitab/Rilpiviri/Tenof Ala 1 each PO DAILY 11/10/16 11/10/16 11/09/16 History [Odefsey Tablet] Furosemide [Lasix TAB] 40 mg PO QDAY 11/10/16 11/10/16 Unknown History Promethazine [Phenergan TAB] 25 mg PO Q8HR PRN 11/10/16 11/10/16 Unknown History Simvastatin [Zocor TAB] 20 mg PO QHS 11/10/16 11/10/16 Unknown History Sucralfate [Carafate] 10 ml PO PRN 11/10/16 11/10/16 Unknown History Sulfamethoxazole/Trimethoprim 1 each PO DAILY 11/10/16 11/10/16 Unknown History [Bactrim DS TAB] ALPRAZolam [Xanax TAB] 1 mg PO BID PRN #30 tablet 11/12/16 Unknown Rx Dicyclomine [Bentyl] 20 mg PO QID #30 tablet 11/12/16 Unknown Rx Gabapentin [Neurontin] 300 mg PO TID #60 capsule 11/12/16 Unknown Rx Metoclopramide [Reglan TAB] 10 mg PO TID PRN #30 tablet 11/12/16 Unknown Rx Minoxidil [Loniten] 5 mg PO BID #60 tablet 11/12/16 Unknown Rx Pantoprazole [Protonix TAB] 20 mg PO QDAY #30 tablet. 11/12/16 Unknown Rx cloNIDine [Catapres] 0.2 mg PO BID #60 tablet 11/12/16 Unknown Rx ALBUTEROL Inhaler [Proair] 2 puff IH QID PRN #1 inhalation 12/24/16 Unknown Rx Azithromycin [Zithromax Z-MELITON] 0 mg PO DAILY #6 tab 12/24/16 Unknown Rx Cyclobenzaprine [Flexeril] 10 mg PO TID PRN #10 tablet 12/24/16 Unknown Rx Atenolol [Tenormin] 100 mg PO DAILY #30 tablet 02/25/17 Unknown Rx Benzonatate [Tessalon Perle] 100 mg PO TID PRN #30 capsule 02/25/17 Unknown Rx D-Methorphan/PE/Acetaminophen 1 each PO Q6H #20 tablet 02/25/17 Unknown Rx [Tylenol Cold Max Day Caplet] Ibuprofen [Motrin 800 MG tab] 800 mg PO Q8HR PRN #20 tablet 02/25/17 Unknown Rx amLODIPine [Norvasc] 10 mg PO DAILY #30 tablet 02/25/17 Unknown Rx ED Review of Systems ROS: Stated complaint: FLU LIKE SYMPTOMS Other details as noted in HPI Constitutional: denies: chills, fever Eyes: denies: eye pain, eye discharge, vision change ENT: ear pain, throat pain. denies: dental pain, hearing loss, congestion Respiratory: denies: cough, shortness of breath, wheezing Cardiovascular: denies: chest pain, palpitations Endocrine: no symptoms reported Gastrointestinal: denies: abdominal pain, nausea, vomiting, diarrhea, constipation Genitourinary: denies: urgency, dysuria, discharge Musculoskeletal: denies: back pain, joint swelling, arthralgia Skin: denies: rash, lesions, change in color Neurological: denies: headache, weakness, paresthesias Psychiatric: denies: anxiety, depression Hematological/Lymphatic: denies: easy bleeding, easy bruising Physical Exam - Physical Exam Vital Signs: Vital Signs 02/25/17 12:09 Temperature 98.2 F Pulse Rate 85 Respiratory 20 Rate Blood Pressure 187/124 Blood Pressure 187/124 [Left] Blood Pressure 196/119 [Right] O2 Sat by Pulse 94 Oximetry Physical Exam: GENERAL: Alert and oriented x3, no apparent distress, Normal Gait, atraumatic. HEAD: Head is normocephalic and a-traumatic. EYES: Extra ocular muscles are intact. Pupils are equal, round, and reactive to light and accommodation. EARS: symetrical, atraumatic, non tender, ear canal clear and moderate cerumen, tympanic membrance non inflamed, clear fluid visualized in bilateral ears behind TM. gross auditory nml bilaterally. NOSE: Nose symetrical, Nontender,Nares appeared normal. MOUTH:Mouth is well hydrated and without lesions. Tonsils nonerythematous or swollen, Uvula midline, Tongue not elevated. Mucous membranes are moist. Posterior pharynx clear, no exudate or lesions. Patent airways. NECK: Supple. Non edematous, No lymphadenopathy or thyromegaly. No C-spine tenderness LUNGS: Symetrical with respiration, No wheezing, no rales or crackles, CTAB. HEART: S1, S2 present, regular rate and rhythm without murmur, no rubs, no gallops. Non tender to palpation BACK: Full range of motion, no spinal tenderness, nontender to palpation. NEUROLOGIC: The patient is cooperative with no focal neurologic deficits. Normal speech. Normal sensation in bilateral upper and lower extremities, No loss of sensation, SKIN: Warm and dry, No lesions, No ulceration or induration present. ED Course Vital Signs 02/25/17 12:09 Temperature 98.2 F Pulse Rate 85 Respiratory 20 Rate Blood Pressure 187/124 Blood Pressure 187/124 [Left] Blood Pressure 196/119 [Right] O2 Sat by Pulse 94 Oximetry ED Medical Decision Making - Lab Data Result diagrams: 02/25/17 14:23 02/25/17 14:23 Temp Pulse Resp BP Pulse Ox 98.2 F 87 20 172/84 97 02/25/17 12:09 02/25/17 17:12 02/25/17 17:12 02/25/17 17:12 02/25/17 17:12 - Radiology Data Radiology results: report reviewed, image reviewed FINAL REPORT EXAM: XR CHEST ROUTINE 2V HISTORY: cough TECHNIQUE: PA and lateral views of the chest PRIORS: None. FINDINGS: Lines, tubes, and devices: N/A Lungs and pleura: Trachea is normal in position. Lungs are clear of infiltrate, pleural effusion, vascular congestion, or pneumothorax. Cardiomediastinal silhouette: Cardiac silhouette is mildly enlarged. Other: Bony structures are intact. IMPRESSION: No acute cardiopulmonary process seen. Transcribed By: [facility] Dictated By: HO NEWMAN MD Electronically Authenticated By: HO NEWMAN MD Signed Date/Time: 02/25/17 1303 - Medical Decision Making 51-year-old female presents with upper respiratory infection ED course: Patient received clonidine 0.2 mg in ED. Chest x-ray was ordered. This x-ray shows no acute cardiacor pulmonary findings. I discussed this findings with the patient. I discussed the patient and I will refill her blood pressure medications and she is supposed to take it AV. I discussed with the patient I'll give her primary care physician referrals and to follow-up with down for continuing management of blood pressure meds Vital signs normalized blood pressure reduced prior to discharge Patient is in no acute respiratory distress Critical care attestation.: If time is entered above; I have spent that time in minutes in the direct care of this critically ill patient, excluding procedure time. ED Disposition Clinical Impression: Uncontrolled hypertension URI (upper respiratory infection) Qualifiers: URI type: unspecified URI Qualified Code(s): J06.9 - Acute upper respiratory infection, unspecified Disposition: - TO HOME OR SELFCARE Is pt being admited?: No Does the pt Need Aspirin: No Condition: Stable Instructions: Upper Respiratory Infection (ED), Chronic Hypertension (ED), Hypertensive Crisis (ED), Hypertension (ED) Additional Instructions: Make sure to follow up with the primary care physician as discussed. Take all your medications as you've been prescribed. If you have any worsening symptoms or develop new symptoms please return to ED immediately. Prescriptions: amLODIPine [Norvasc] 10 mg PO DAILY #30 tablet Atenolol [Tenormin] 100 mg PO DAILY #30 tablet Benzonatate [Tessalon Perle] 100 mg PO TID PRN #30 capsule PRN Reason: Cough D-Methorphan/PE/Acetaminophen [Tylenol Cold Max Day Caplet] 1 each PO Q6H #20 tablet Ibuprofen [Motrin 800 MG tab] 800 mg PO Q8HR PRN #20 tablet PRN Reason: Pain Referrals: RACHELLE ORDAZ MD [Primary Care Provider] - 3-5 Days ALBA HARPER MD [Referring] - 3-5 Days [facility] [Outside] - 3-5 Days [facility] [Outside] - 3-5 Days Time of Disposition: 16:03
[2017-02-25 14:39] LABS: Basophils # (Auto) 0.1 K/mm3 (0.0-0.1); Basophils % (Auto) 0.9 % (0.0-1.8); Eosinophils # (Auto) 0.1 K/mm3 (0.0-0.4); Eosinophils % (Auto) 1.4 % (0.0-4.3); Hematocrit 41.1 % (30.3-42.9); Lymphocytes # (Auto) 2.4 K/mm3 (1.2-5.4); Lymphocytes % (Auto) 38.8 % (13.4-35.0); Mean Corpuscular HGB Conc 32 % (30-34); Mean Corpuscular Volume 81 fl (79-97); Monocytes # (Auto) 0.4 K/mm3 (0.0-0.8); Monocytes % (Auto) 6.9 % (0.0-7.3); Platelet Count 163 K/mm3 (140-440); Red Blood Count 5.06 M/mm3 (3.65-5.03); Red Cell Distribution Width 15.3 % (13.2-15.2)
[2017-02-25 14:43] LABS: Mean Corpuscular Hemoglobin 26 pg (28-32)
[2017-02-25 14:58] LABS: Alanine Aminotransferase 14 units/L (7-56); Albumin 4.1 g/dL (3.9-5); BUN/Creatinine Ratio 18; Blood Urea Nitrogen 11 mg/dL (7-17); Calcium 8.6 mg/dL (8.4-10.2); Hemolysis Index 4
[2017-02-25] MEDS ORDERED: NORVASC PO ONE (17:01)
--- NOTE | 2017-02-25 17:07 | XRay Report ---
FINAL REPORT EXAM: XR CHEST ROUTINE 2V HISTORY: cough TECHNIQUE: PA and lateral views of the chest PRIORS: None. FINDINGS: Lines, tubes, and devices: N/A Lungs and pleura: Trachea is normal in position. Lungs are clear of infiltrate, pleural effusion, vascular congestion, or pneumothorax. Cardiomediastinal silhouette: Cardiac silhouette is mildly enlarged. Other: Bony structures are intact. IMPRESSION: No acute cardiopulmonary process seen.
[2017-02-25 17:13] VITALS: BP 172/84
== END 2017-02-25 17:24 | disposition home or self-care (01) ==
LOC: ED 10:08
DX: J06.9 Acute upper respiratory infection, unspecified (principal); I10 Essential (primary) hypertension; K21.9 Gastro-esophageal reflux disease without esophagitis; M19.90 Unspecified osteoarthritis, unspecified site; J44.9 Chronic obstructive pulmonary disease, unspecified
CPT/HCPCS: 36415; 71046; 80053; 84484; 85025; 93005; 93010; 99284

== ENCOUNTER 2017-03-22 18:12 | Emergency (ER) | payer SELFPAY ==
[2017-03-22 18:27] VITALS: BP 152/83
[2017-03-22 19:14] LABS: Basophils # (Auto) 0.1 K/mm3 (0.0-0.1); Basophils % (Auto) 0.8 % (0.0-1.8); Eosinophils # (Auto) 0.1 K/mm3 (0.0-0.4); Eosinophils % (Auto) 1.3 % (0.0-4.3); Hematocrit 41.8 % (30.3-42.9); Hemoglobin 13.7 gm/dl (10.1-14.3); Lymphocytes # (Auto) 2.3 K/mm3 (1.2-5.4); Lymphocytes % (Auto) 35.2 % (13.4-35.0); Mean Corpuscular HGB Conc 33 % (30-34); Mean Corpuscular Hemoglobin 27 pg (28-32); Mean Corpuscular Volume 82 fl (79-97); Monocytes # (Auto) 0.4 K/mm3 (0.0-0.8); Monocytes % (Auto) 5.9 % (0.0-7.3); Platelet Count 175 K/mm3 (140-440); Red Blood Count 5.08 M/mm3 (3.65-5.03); Red Cell Distribution Width 15.8 % (13.2-15.2)
[2017-03-22 19:27] LABS: Alanine Aminotransferase 12 units/L (7-56); Albumin 4.2 g/dL (3.9-5); BUN/Creatinine Ratio 18; Blood Urea Nitrogen 11 mg/dL (7-17); Calcium 8.5 mg/dL (8.4-10.2); Hemolysis Index 7
== END 2017-03-22 23:00 | disposition left against medical advice (07) ==
LOC: ED 18:12
DX: R07.9 Chest pain, unspecified (principal); Z53.21 Procedure and treatment not carried out due to patient leaving prior to being seen by health care provider
CPT/HCPCS: 36415; 80053; 85025; 93005; 93010

== ENCOUNTER 2017-06-07 05:24 | Emergency (ER) | payer OTHER ==
[2017-06-07 06:03] VITALS: BP 124/68
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
[2017-06-07] MEDS ORDERED: ULTRAM PO ONE (13:15)
[2017-06-07] MEDS ORDERED: MOTRIN PO ONE (13:16)
[2017-06-07] MEDS ORDERED: TYLENOL PO ONE (13:16)
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
== END 2017-06-07 14:50 | disposition home or self-care (01) ==
LOC: ED 05:24
DX: S46.912A Strain of unspecified muscle, fascia and tendon at shoulder and upper arm level, left arm, initial encounter (principal); S40.012A Contusion of left shoulder, initial encounter; V49.59XA Passenger injured in collision with other motor vehicles in traffic accident, initial encounter; Y93.89 Activity, other specified; Y92.89 Other specified places as the place of occurrence of the external cause; Y99.8 Other external cause status
CPT/HCPCS: 72040

== ENCOUNTER 2017-08-01 08:46 | Emergency (ER) | payer OTHER ==
[2017-08-01 08:52] VITALS: BP 169/96
[2017-08-01] MEDS ORDERED: DILAUDID IM ONE (10:42)
[2017-08-01] MEDS ORDERED: ZOFRAN IM ONE (10:43)
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
[2017-08-01] MEDS ORDERED: CELESTONE SOLUSPAN IM ONE (11:00)
--- NOTE | 2017-08-01 13:17 | XRay Report ---
FINAL REPORT EXAM: XR ANKLE 3+V RT HISTORY: injury, rt ankle pain TECHNIQUE: Two views of the right ankle. PRIORS: None. FINDINGS: There is no evidence of acute fracture. There is no evidence of joint dislocation. There is some posterior an E ule spurring at Achilles insertion. IMPRESSION: There is no acute abnormality identified.
--- NOTE | 2017-08-01 13:23 | XRay Report ---
FINAL REPORT EXAM: XR CHEST ROUTINE 2V HISTORY: shortness breath TECHNIQUE: Chest, two views PRIORS: 02/25/2017 FINDINGS: The heart size is normal. Mediastinal contours are normal. Pulmonary vasculature is not congested. The lungs are clear. There are no pleural effusion seen. There is no evidence of pneumothorax. IMPRESSION: There is no acute abnormality identified.
== END 2017-08-01 13:30 | disposition home or self-care (01) ==
LOC: ED 08:46
DX: S93.431A Sprain of tibiofibular ligament of right ankle, initial encounter (principal); M54.5 Low back pain; G89.29 Other chronic pain; J44.9 Chronic obstructive pulmonary disease, unspecified; I10 Essential (primary) hypertension; K21.9 Gastro-esophageal reflux disease without esophagitis; M19.90 Unspecified osteoarthritis, unspecified site; F41.8 Other specified anxiety disorders; Z90.49 Acquired absence of other specified parts of digestive tract; Z90.710 Acquired absence of both cervix and uterus; Z79.899 Other long term (current) drug therapy; Z88.8 Allergy status to other drugs, medicaments and biological substances; V89.2XXA Person injured in unspecified motor-vehicle accident, traffic, initial encounter; Y93.89 Activity, other specified; Y99.8 Other external cause status; Y92.89 Other specified places as the place of occurrence of the external cause
CPT/HCPCS: 71046; 73610; 96372; 99283; J0702; J1170; J2405